=== PATIENT | female | born 1965 | race American Indian/Alaskan Native ===

== ENCOUNTER 2018-09-29 11:01 | Emergency (ER) | payer OTHER ==
[~2018-09-29] VITALS: Ht 170.2 cm; Wt 73.5 kg
--- OUTSIDE RECORDS SUMMARY | ~2018-09-29 | XMS | Clinical Summary ---
Demographics + + + | Address | [address] | | | [place] [address] | + + + | Home Phone | | + + + | Preferred Language | Unknown | + + + | Marital Status | Single | + + + | Mu-Ism Affiliation | Unknown | + + + | Race | Unknown | + + + | Ethnic Group | Unknown | + + + Author + + + | Author | [facility] | + + + | Organization | [facility] | + + + | Address | Unknown | + + + | Phone | Unavailable | + + + Support + + + + + | Name | Relationship | Address | Phone | + + + + + | Janice Griffin | ECON | [id number] | | | | | [place] | | | | | [id number] | | + + + + + Care Team Providers + +------+ + | Care Real Estate Internship Name | Role | Phone | + +------+ + | George Andrews MD | PP | | + +------+ + Allergies Not on File Current Medications Not on file Active Problems Not on file Social History + +-------+ +--------+------+ | Tobacco [...] on file | | + + + Plan of Treatment Not on file Results Not on filefrom Last 3 Months"
--- OUTSIDE RECORDS SUMMARY | ~2018-09-29 | XMS | Clinical Summary ---
Demographics + + + | Address | [id number] | | | [place] [address] | + + + | Home Phone | | + + + | Preferred Language | Unknown | + + + | Marital Status | Unknown | + + + | Pentecostal Affiliation | Unknown | + + + | Race | Unknown | + + + | Ethnic Group | Unknown | + + + Author + + + | Author | [facility] | | | and [facility] | + + + | Organization | [facility] | | | and [place] | + + + | Address | Unknown | + + + | Phone | Unavailable | + + + Care Team Providers + +------+ + | Care Rn Cardiac Rehab Name | Role | Phone | + +------+ + PP | Unavailable | + +------+ + Allergies Not on [...] recent travel history available. | + + Plan of Treatment + + + + [...] Vaccine: Influenza | | | | | (Season Ended) | 9 | | | + + + + + Results Not on filefrom Last 3 Months"
--- OUTSIDE RECORDS SUMMARY | ~2018-09-29 | XMS | Clinical Summary ---
Demographics + + + | Address | [address] | | | [place] [address] | + + + | Home Phone | | + + + | Preferred Language | Unknown | + + + | Marital Status | Single | + + + | Confucianism Affiliation | Unknown | + + + | Race | Unknown | + + + | Ethnic Group | Unknown | + + + Author + + + | Author | [facility] | + + + | Organization | [facility] | + + + | Address | Unknown | + + + | Phone | Unavailable | + + + Support + + + + + | Name | Relationship | Address | Phone | + + + + + | Janice Griffin | ECON | [id number] | | | | | [place] | | | | | [phone] | | + + + + + Care Team Providers + +------+ + | Care Nurse Specialist Name | Role | Phone | + [...]
--- OUTSIDE RECORDS SUMMARY | ~2018-09-29 | XMS | Clinical Summary ---
Demographics + + + | Address | [id number] | | | [place] [address] | + + + | Home Phone | | + + + | Preferred Language | Unknown | + + + | Marital Status | Unknown | + + + | Voodoo Affiliation | Unknown | + + + | Race | Unknown | + + + | Ethnic Group | Unknown | + + + Author + + + | Author | [facility] | | | and [facility] | + + + | Organization | [facility] | | | and [place] | + + + | Address | Unknown | + + + | Phone | Unavailable | + + + Care Team Providers + +------+ + | Care Floor Press Operator Name | Role | Phone [...]
[~2018-09-29 11:01] MED LIST: ABILIFY5 MG PO; ASPIRIN EC81 MG PO; CLOTRIMAZOLE-BE15 GM TOP; DOXYCYCLINE HY100 MG PO; ERYTHROMYCIN3.5 GM OD; FENOFIBRATE160 MG; FENOFIBRATE160 MG PO; GABAPENTIN300 MG PO; GLIPIZIDE XL10 MG PO; GLUCOPHAGE XR500 MG PO; IBUPROFEN600 MG PO; LANTUS100 UNITS/ SUB-Q; LEVAQUIN500 MG PO; MULTI VITAMIN1 EACH PO; MULTIVITAMINS1 EAC7 PO; NORCO 5-325 TA1 EACH PO; PERCOCET 5-3251 EACH PO
[2018-09-29] MEDS ORDERED: PENICILLIN V P500 MG PO (11:09)
== END 2018-09-29 12:31 | disposition home or self-care (01) ==
LOC: ED 11:01
DX: S20.211A Contusion of right front wall of thorax, initial encounter (principal); W06.XXXA Fall from bed, initial encounter; E11.9 Type 2 diabetes mellitus without complications; Z88.5 Allergy status to narcotic agent; Z79.4 Long term (current) use of insulin; Z79.899 Other long term (current) drug therapy
CPT/HCPCS: 71046; 99284-25

== ENCOUNTER 2019-04-26 11:51 | Inpatient (IN) | payer OTHER ==
[~2019-04-26] VITALS: Ht 170.2 cm; Wt 73.5 kg
--- OUTSIDE RECORDS SUMMARY | ~2019-04-26 | XMS | Encounter Summary ---
Demographics + + + | Address | [id number] | | | [place] [address] | + + + | Home Phone | | + + + | Preferred Language | Unknown | + + + | Marital Status | Unknown | + + + | Holiness Affiliation | Unknown | + + + | Race | Unknown | + + + | Ethnic Group | Unknown | + + + Author + + + | Author | [facility] | | | and [place] | + + + | Organization | [facility] | | | and [place] | + + + | Address | Unknown | + + + | Phone | Unavailable | + + + Care Team Providers + +------+ + | Care C D Reactor Operator Name | Role | Phone | + +------+ + PCP | Unavailable | + +------+ + Encounter Details +--------+ + + + + | Date | Type | Department | Care Team | Description | +--------+ + + + + | 02/24/ | Hospital | [facility] | Parker Casillas MD | | | 1994 | Encounter | HOSPITAL EMERGENCY | | | | | | CENTER [address] [place] [address] | | | | | | [place], [place] | | | | | | [address] | | | | | | [phone] | | | +--------+ + + + + Social History + +-------+ +--------+------+ | Tobacco Use | Types | Packs/Day | Years | Date | | | | | Used | | + +-------+ +--------+------+ | Never Assessed | | | | | + +-------+ +--------+------+ + + + | Sex Assigned at | Date Recorded | | | | + + + | Not on file | | + + + + + + + | Job Start Date | Occupation | Industry | + + + + | Not on file | Not on file | Not on file | + + + + + + + + | Travel History | Travel Start | Travel End | + + + + + + | No recent travel history available. | + + documented as of this encounter Plan of Treatment Not on filedocumented as of this encounter Visit Diagnoses Not on filedocumented in this encounter"
--- OUTSIDE RECORDS SUMMARY | ~2019-04-26 | XMS | Encounter Summary ---
Demographics + + + | Address | [id number] | | | [place] [address] | + + + | Home Phone | | + + + | Preferred Language | Unknown | + + + | Marital Status | Unknown | + + + | Orthodox Affiliation | Unknown | + + + | Race | Unknown | + + + | Ethnic Group | Unknown | + + + Author + + + | Author | [facility] | | | and [place] | + + + | Organization | [facility] | | | and [place] | + + + | Address | Unknown | + + + | Phone | Unavailable | + + + Care Team Providers + +------+ + | Care Minister Of Religion Name | Role | Phone | + +------+ + PCP | Unavailable | + +------+ + Encounter Details +--------+ + + + + | Date | Type | Department | Care Team | Description | +--------+ + + + + | 10/10/ | Hospital | [facility] | Wing Ragini Sutton MD | REHABILITATION PROC | | 2005 - | Encounter [facility] | [address] | NEC | | | | INPATIENT | [place], [place] | | | 10/15/ | | REHABILITATION [address] | [address] | | | [address] | | [address] | [phone] | | | | | [place], [place] | | | | | | [address] | | | | | | [phone] | | | +--------+ + + + [...] filedocumented as of this encounter Visit Diagnoses + + | Diagnosis | + + | Other specified rehabilitation procedure(V57.89) Other specified rehabilitation | | procedure | + + documented in this encounter"
--- OUTSIDE RECORDS SUMMARY | ~2019-04-26 | XMS | Clinical Summary ---
Demographics + + + | Address | [id number] | | | [place] [address] | + + + | Home Phone | | + + + | Preferred Language | Unknown | + + + | Marital Status | Unknown | + + + | Hinduism Affiliation | Unknown | + + + | Race | Unknown | + + + | Ethnic Group | Unknown | + + + Author + + + | Author | [facility] | | | and [place] | + + + | Organization | [facility] | | | and [place] | + + + | Address | Unknown | + + + | Phone | Unavailable | + + + Care Team Providers + +------+ + | Care Mill Dresser Name | Role | Phone | + +------+ + | George Andrews MD | PCP | | + +------+ + Allergies Not on File Medications Not on file Active Problems Not [...] recent travel history available. | + + Last Filed Vital Signs Not on file Plan of Treatment + + + + + | Health Maintenance | Due Date | Last Done | Comments | + + + + + | Vaccine: | | | | | Dtap/Tdap/Td (1 - | 2 | | | | Tdap) | | | | + + + + + | Cervical Cancer | | | | | Screening (Pap) | 3 | | | + + + + + | Vaccine: Zoster (1 | | | | | of 2) | 3 | | | + + + + + | Breast Cancer | | | | | Screening | 8 | | | + + + + + | Vaccine: Influenza | | | | | (#1) | 9 | | | + + + + + Results Not on filefrom Last 3 Months"
--- OUTSIDE RECORDS SUMMARY | ~2019-04-26 | XMS | Clinical Summary ---
Demographics + + + | Address | [id number] | | | [place] [address] | + + + | Home Phone | | + + + | Preferred Language | Unknown | + + + | Marital Status | Unknown | + + + | Uatsdin Affiliation | Unknown | + + + | Race | Unknown | + + + | Ethnic Group | Unknown | + + + Author + + + | Author | [facility] | | | and [place] | + + + | Organization | [facility] | | | and [place] | + + + | Address | Unknown | + + + | Phone | Unavailable | + + + Care Team Providers + +------+ + | Care Printing Press Operator Name | Role | Phone | [...]
--- OUTSIDE RECORDS SUMMARY | ~2019-04-26 | XMS | Clinical Summary ---
Demographics + + + | Address | [address] | | | [place] [address] | + + + | Home Phone | | + + + | Preferred Language | Unknown | + + + | Marital Status | Single | + + + | Mormonism Affiliation | Unknown | + + + | Race | Unknown | + + + | Ethnic Group | Unknown | + + + Author + + + | Author | [facility] (Historical as of | | | 01-29-19) | + + + | Organization | [facility] (Historical as of | | | 01-29-19) | + + + | Address | Unknown | + + + | Phone | Unavailable | + + + Support + + + + + | Name | Relationship | Address | Phone | + + + + + | Janice Griffin | ECON | [id number] | | | | | [place] | | | | | [address] | | + + + + + Care Team Providers + +------+ + | Care Cushion Builder Name | Role | Phone | + [...]
--- OUTSIDE RECORDS SUMMARY | ~2019-04-26 | XMS | Encounter Summary ---
Demographics + + + | Address | [id number] | | | [place] [address] | + + + | Home Phone | | + + + | Preferred Language | Unknown | + + + | Marital Status | Unknown | + + + | Zoroastrian Affiliation | Unknown | + + + | Race | Unknown | + + + | Ethnic Group | Unknown | + + + Author + + + | Author | [facility] | | | and [place] | + + + | Organization | [facility] | | | and [place] | + + + | Address | Unknown | + + + | Phone | Unavailable | + + + Care Team Providers + +------+ + | Care Medical Professionals Name | Role | Phone | + +------+ + PCP | Unavailable | + +------+ + Encounter Details +--------+ + + + + | Date | Type | Department | Care Team | Description | +--------+ + + + + | 10/10/ | Hospital | [facility] | Wing Ragini Sutton MD | REHABILITATION PROC | | 2005 - | Encounter [facility] | [address] | NEC | | | | INPATIENT | [place], [place] | | | 10/15/ | | REHABILITATION [address] | [address] | | | 2004 | | [address] | [phone] | | | | | [place], [place] | | | | | | [address] | | | | | | [phone] | | | +--------+ + + + [...]
--- OUTSIDE RECORDS SUMMARY | ~2019-04-26 | XMS | Encounter Summary ---
Demographics + + + | Address | [id number] | | | [place] [address] | + + + | Home Phone | | + + + | Preferred Language | Unknown | + + + | Marital Status | Unknown | + + + | Sikh Affiliation | Unknown | + + + | Race | Unknown | + + + | Ethnic Group | Unknown | + + + Author + + + | Author | [facility] | | | and [place] | + + + | Organization | [facility] | | | and [place] | + + + | Address | Unknown | + + + | Phone | Unavailable | + + + Care Team Providers + +------+ + | Care Semiconductor Engineer Name | Role | Phone | + +------+ + PCP | Unavailable | + +------+ + Encounter Details +--------+ + + + + | Date | Type | Department | Care Team | Description | +--------+ + + + + | 02/24/ | Hospital | [facility] | Parker Casillas MD | | | 1994 | Encounter | HOSPITAL EMERGENCY | | | | | | CENTER [address] [place] [address] | | | | | | [place], [place] | | | | | | [address] | | | | | | [phone] | | | +--------+ + + + [...]
--- OUTSIDE RECORDS SUMMARY | ~2019-04-26 | XMS | Clinical Summary ---
Demographics + + + | Address | [address] | | | [place] [address] | + + + | Home Phone | | + + + | Preferred Language | Unknown | + + + | Marital Status | Unknown | + + + | Congregational Affiliation | Unknown | + + + | Race | Unknown | + + + | Ethnic Group | Unknown | + + + Author + + + | Author | [facility] | | | and [place] | + + + | Organization | [facility] | | | and [place] | + + + | Address | Unknown | + + + | Phone | Unavailable | + + + Care Team Providers + +------+ + | Care Worldwide Chief Creative Officer Name | Role | Phone | + [...]
--- OUTSIDE RECORDS SUMMARY | ~2019-04-26 | XMS | Clinical Summary ---
Demographics + + + | Address | [address] | | | [place] [address] | + + + | Home Phone | | + + + | Preferred Language | Unknown | + + + | Marital Status | Single | + + + | Mu-Ism Affiliation | Unknown | + + + | Race | Unknown | + + + | Ethnic Group | Unknown | + + + Author + + + | Author | [facility] (Historical as of | | | 01-29-19) | + + + | Organization | [facility] (Historical as of | | | 01-29-19) | + + + | Address | Unknown | + + + | Phone | Unavailable | + + + Support + + + + + | Name | Relationship | Address | Phone | + + + + + | Janice Griffin | ECON | [id number] | | | | | [place] | | | | | [address] | | + + + + + Care Team Providers + +------+ + | Care Iv Rn Name | Role | Phone | + [...]
--- OUTSIDE RECORDS SUMMARY | ~2019-04-26 | XMS | Clinical Summary ---
Demographics + + + | Address | [address] | | | [place] [address] | + + + | Home Phone | | + + + | Preferred Language | Unknown | + + + | Marital Status | Single | + + + | Sikhism Affiliation | Unknown | + + + | Race | Unknown | + + + | Ethnic Group | Unknown | + + + Author + + + | Author | [email or web address] (Historical as of | | | 01-29-19) | + + + | Organization | [email or web address] (Historical as of | | | 01-29-19) | + + + | Address | Unknown | + + + | Phone | Unavailable | + + + Support + + + + + | Name | Relationship | Address | Phone | + + + + + | Janice Griffin | ECON | [id number] | | | | | [place] | | | | | [address] | | + + + + + Care Team Providers + +------+ + | Care Chha Name | Role | Phone | + [...]
--- OUTSIDE RECORDS SUMMARY | ~2019-04-26 | XMS | Encounter Summary ---
Demographics + + + | Address | [id number] | | | [place] [address] | + + + | Home Phone | | + + + | Preferred Language | Unknown | + + + | Marital Status | Unknown | + + + | Taoism Affiliation | Unknown | + + + | Race | Unknown | + + + | Ethnic Group | Unknown | + + + Author + + + | Author | [facility] | | | and [place] | + + + | Organization | [facility] | | | and [place] | + + + | Address | Unknown | + + + | Phone | Unavailable | + + + Care Team Providers + +------+ + | Care Fancy Wire Drawer Name | Role | Phone | + +------+ + PCP | Unavailable | + +------+ + Encounter Details +--------+ + + + + | Date | Type | Department | Care Team | Description | +--------+ + + + + | 02/24/ | Hospital | [facility] | Parker Casillas MD | | | 1994 | Encounter | HOSPITAL EMERGENCY | | | | | | CENTER [address] [place] [address] | | | | | | [place], [place] | | | | | | [address] | | | | | | [phone] | | | +--------+ + + + [...]
--- OUTSIDE RECORDS SUMMARY | ~2019-04-26 | XMS | Encounter Summary ---
Demographics + + + | Address | [address] | | | [place] [address] | + + + | Home Phone | | + + + | Preferred Language | Unknown | + + + | Marital Status | Unknown | + + + | Episcopalian Affiliation | Unknown | + + + | Race | Unknown | + + + | Ethnic Group | Unknown | + + + Author + + + | Author | [facility] | | | and [place] | + + + | Organization | [facility] | | | and [place] | + + + | Address | Unknown | + + + | Phone | Unavailable | + + + Care Team Providers + +------+ + | Care Children'S Nursery Assistant Name | Role | Phone | + +------+ + PCP | Unavailable | + +------+ + Encounter Details +--------+ + + + + | Date | Type | Department | Care Team | Description | +--------+ + + + + | 10/10/ | Hospital | [facility] | Wing Ragini Sutton MD | REHABILITATION PROC | | 2005 - | Encounter [facility] | [address] | NEC | | | | INPATIENT | [place], [place] | | | 10/15/ | | REHABILITATION [address] | [address] | | | [address] | | [address] | [phone] | | | | | [place], [place] | | | | | | [address] | | | | | | [phone] | | | +--------+ + + + [...]
[~2019-04-26 11:51] MED LIST changes: +PENICILLIN V P500 MG PO
--- NOTE | 2019-04-26 16:55 | NUR ---
PATIENT ARRIVES FROM ER ON STRETCHER AT 1630. PT CALM, TALKATIVE, AND COOEPRATIVE AT THIS TIME. IVF GOING AT 125 UPON ADMISSION. D/C NOW PER DR. STATON. RECHECKING LABS AT 1800.
--- NOTE | 2019-04-26 19:25 | NUR ---
PATIENT REMAINS SITTING IN CHAIR AND REQUESTING EMESIS BAG FOR FEELING NAUSEOUS AGAIN. CALL LIGHT WITHIN REACH.
--- NOTE | 2019-04-26 19:30 | NUR ---
SHIFT REPORT RECEIVED. PATIENT RESTING IN RECLINER. DENIES ANY NEEDS AT THIS TIME. CALL LIGHT IN REACH.
--- NOTE | 2019-04-26 19:56 | NUR ---
I went to pt room to greet her. She requested i come back @ 1999 so she could get into bed. She stated she was very hungry and is on a clear liquid diet. I double checked with MARGARITA Ríos and broth was approved.
--- NOTE | 2019-04-26 20:21 | EKG ---
[facility] [address] [facility] [place] [address] Signed Normal sinus rhythm Normal ECG No previous ECGs available Confirmed by AIDA STATON MD ([id number]) on 04/26/2019 8:20:55 PM Electronically Signed By: AIDA STATON MD 04/26/192020 PATIENT NAME: CHRISTOPHER PEREIRA Electrocardiogram DATE OF : 61 PHYSICIAN: AIDA STATON MD REPORT #: [id number] REPORT IS CONFIDENTIAL AND NOT TO BE RELEASED WITHOUT AUTHORIZATION
--- NOTE | 2019-04-26 20:36 | NUR ---
pt requested to get into bed from the chair. she did well with the broth and does not feel nauseous at all. I asked if she would like to also try a clear ensure and she stated "I will give it a shot but I'd like to make sure the broth settles well." I agreed with pt. she does not need anything further at this time.
--- NOTE | 2019-04-26 21:30 | NUR ---
PATIENT IN BED. ORIENTED X4. IV FLUIDS STARTED PER ORDERS. PATIENT TOLERATING CLEAR LIQUIDS AND DRANK SOME BROTH AND CLEAR ENSURE. NO NAUSEA. VS STABLE. PATIENT COMPLAINS OF LEFT SIDE PAIN AND DOES NOT USE THIS ARM FOR ANY ACTIVITY. PATIENT ALSO REPORTS "LEG TWITCHING" WHICH SHE TAKE GABAPENTIN FOR AND WAS GIVEN TONIGHT. WARM BLANKET AND EXTRA PILLOW PROVIDED. NO FURTHER NEEDS AT THIS TIME.
--- NOTE | 2019-04-26 21:41 | NUR ---
pt used call light to get back into bed. she resulted in 225ccs of urine. she did not need anything further at this time.
--- NOTE | 2019-04-26 21:54 | NUR ---
PT VANDANA CL LIQ. IS STILL HUNGRY, GIVEN SUGAR FREE PUDDING.
--- NOTE | 2019-04-27 00:05 | NUR ---
PATIENT APPEARED TO BE SLEEPING WHEN RN ENTERED ROOM. NEW IV SITE PLACED IN RIGHT FOREARM, LABS DRAWN. PATIENT TOLERATED WELL. PATIENT REQUEST WATER AND CRACKERS WHICH WERE PROVIDED.
--- NOTE | 2019-04-27 01:00 | NUR ---
REPORTED LAB RESULTS TO . NO NEW ORDERS AT THIS TIME.
--- NOTE | 2019-04-27 01:24 | NUR ---
PATIENT UP TO BATHROOM. WALKS WITH MINIMAL ASSIST, APPEARS STEADY ON HER FEET. REPORTS FEELING SOMEWHAT DIZZY WITH AMBULATION. RETURNED TO BED WITHOUT ISSUES. VS STABLE. NO NAUSEA. PATIENT DENIED ANY NEEDS.
--- NOTE | 2019-04-27 02:55 | NUR ---
PATIENT UP TO THE BATHROOM. STEADY ON HER FEET. DENIES FEELING DIZZY AT THIS TIME. REPORTS RINGING IN HER EARS OFF AND ON. PATIENT BACK TO BED. CALL LIGHT IN REACH.
--- NOTE | 2019-04-27 04:30 | NUR ---
PATIENT UP TO THE BATHROOM. STEADY ON FEET. REQUIRES 1PA TO GET OUT OF BED DUE TO LEFT SIDE PAIN. PATIENT REPORTS SHOOTING PAIN IN HER RIGHT ANKLE THAT HAS INCREASED OVER THE LAST HOUR. PRN TYLENOL PROVIDED WITH WARM BLANKET WRAPPED AROUND THE ANKLE.
--- NOTE | 2019-04-27 05:00 | NUR ---
PATIENT REPORTS PAIN RELIEF AFTER PRN TYLENOL. TOLERATING JUICE AND CRACKERS. INTERESTED IN BREAKFAST THIS MORNING. MENU PROVIDED.
--- NOTE | 2019-04-27 09:33 | NUR ---
SPOKE WITH PATIENT IN ROOM. PATIENT UP IN CHAIR, FEEDING SELF BREAKFAST. HAS SOME RESIDUAL LEFT SIDED WEAKNESS FROM PAST STROKE. 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 SHE STATES HER FAMILY CLEANS, COOK AND SHOPS FOR HER. SHE USES A CANE. DENIES HAVING A WALKER. HAS A RAMP AT THE DOOR. SHE HAS FRIENDS WHO COME AND HELP. SHE STILL DOES THERAPY AT HOME. IS UNSURE WHERE THEY COME FROM. SHE DOESN'T DRIVE, FAMILY TAKES HER TO APPOINTMENTS. HER DAUGHTER HELPS HER WITH SHOWERS. SHE INTENDS TO RETURN HOME AT DISCHARGE. QUESTIONS ANSWERED. DR STATON IN TO SEE PATIENT. WILL CONTINUE TO FOLLOW.
--- NOTE | 2019-04-27 10:09 | NUR ---
PATIENT SITTING IN BED AT THIS TIME. D5 STARTED AT 999 FOR A TOTAL OF 2 L BOLUS DUE TO SODIUM LEVEL RISING TOO FAST. PT STATES HER PAIN AROUND A 4-5 TODAY AND TOLERABLE. PT EATING BREAKFAST NOW AND HER FATHER ARRIVES. ASSESSMENT COMPLETE.
--- NOTE | 2019-04-27 10:20 | NUR ---
SPOKE WITH PATIENT IN ROOM. 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 SHE STATES SHE DRIVES. SHE STATES SHE HAS A WALKER SHE USES AT TIMES DUE TO ARTHRITIS, BUT DOESN'T NEED IT ALL THE TIME. SHE PLANS TO RETURN HOME AT DISCHARGE. SHE IS WORRIED ABOUT HER FATHER. SHE DECLINED OFFER OF MY CALLING NURSES AT [facility] TO CHECK ON HER FATHER, STATES SHE HOPES HER OLDEST BROTHER WENT OVER THIS MORNING. DISCUSSED HER ETOH LEVEL AT ADMIT, OFFERED PEER TO PEER VISIT FROM [facility]. SHE DECLINES, STATING SHE DOES NOT HAVE "A PROBLEM". DISCUSSED SHE WOULD ONLY GET INFORMATION AND IF SHE NEEDED IT LATER SHE WOULD HAVE IT. SHE THANKED ME FOR THE OFFER, BUT STILL DECLINIES. DISCUSSED THAT ALCOHOL CONSUMPTION CAN CAUSE ELECTROLYE IMBALANCES, OF WHICH SHE HAD. QUESTIONS ANSWERED. HER MAIN CONCERN IS WHEN SHE "GETS TO GO". DISCUSSED THAT SHE NEEDS TO TALK WITH DR STATON WHEN HE COMES IN. WILL FOLLOW NEEDED.
--- NOTE | 2019-04-27 12:36 | NUR ---
PT UP TO THE BATHROOM AFTER LITER 2 FINISHED. IV SITE SALINE LOCKED AT THIS TIME. PT VOID QS AND THEN BACK TO THE CHAIR. PT DOES NOT WANT TO EAT AT THIS TIME DUE TO SHE JUST ATE BKF AT 10AM TODAY. THIS WIRTER TOOK OVER CARE FROM MARCIA AVILA.
--- NOTE | 2019-04-27 14:49 | NUR ---
PT REMAINS UP IN THE CHAIR, AND CURRENTLY EATTING LUNCH AT THIS TIME. PT DENIES ANY C/O'S AT THIS TIME.
--- NOTE | 2019-04-27 16:35 | NUR ---
PT DENIES THE NEED TO SHOWER OR HAVE A BED BATH AT THIS TIME. PT STATES " I WILL SHOWER TOMORROW BEFORE I GO HOME."
--- NOTE | 2019-04-27 17:54 | NUR ---
PT C/O'S PAIN AT THIS TIME, BUT WANTS TO WAIT TILL [facility] TO TAKE ANYTHING. PT IS BACK IN BED AT THIS TIME. WAITING FOR HER DINNER TO BE BROUGHT UP THIS EVENING. PT IS STEADY ON HER FEET WHEN AMBULATING. STAFF AT HER SIDE BUT NO ASSISTANCE PROVIDED.
--- NOTE | 2019-04-27 18:17 | NUR ---
LAB HERE TO OBTAIN A SAMPLE AT THIS TIME.
--- NOTE | 2019-04-27 18:19 | NUR ---
PT DINNER IS HERE AT THIS TIME. PT REMAINS IN BED AT THIS TIME.
--- NOTE | 2019-04-27 18:48 | NUR ---
PT ATE DINNER AND VANDANA-WELL. SHE HAS DONE VERY WELL WITH FLUID RESTRICATIONS. SHE IS WELL UNDER THE ALLOWED AMOUNT.
--- NOTE | 2019-04-27 20:00 | NUR ---
PT AAOX4, REPORTS STRESS AND ANXIETY REGARDING HOSPITALIZATION, EASILY REASSURED. SPO2 98% ON ROOM AIR, LUNGS CLEAR THROUGHOUT. SINUS RHYTHM WITH HR IN 90'S. BOWEL TONES ACTIVE. FLUID RESTRICITON IN PLACE. VOIDING QS. REPORTS SHOOTING PAINS INTO FEET AT BASELINE. REPORTS 3/10 LEFT RIB PAIN, DENEIS PRN TYLENOL, REQUESTS TYLENOL AT LATER TIME. IV SITE FLSUHED, PATENT, WNL, SALINE LOCKED. UPDATED PLAN OF CARE. EDUCATION PROVIDED ON PAIN MANAGEMENT. REINFORCED SAFETY AND FALL PRECAUTIONS. DENIES OTHER NEEDS. CALL LIGHT WITHIN REACH.
--- NOTE | 2019-04-27 21:30 | NUR ---
PT REQUESTING TYLENOL ALONG WITH GABAPENTIN, PROVIDED. CBG 222, 4 UNTIS GIVEN. EDUCATION PROVIDED ON POTASSIUM, VERBALIZED UNDERSTANDING AND EXHIBITS KNOWLEDGE. DENIES OTHER NEEDS. CALL LIGHT WITHIN REACH.
--- NOTE | 2019-04-27 22:40 | NUR ---
CALL LIGHT ANSWERED. SBA TO RESTROOM, GAIT STEADY, BACK TO BED. LEGS WRAPPED WITH WARM BLANKET. DENIES OTHER NEEDS. CALL LIGHT WITHIN REACH.
--- NOTE | 2019-04-27 23:33 | NUR ---
PT RESTING IN BED WITH EYES CLOSED. RESPIRATIONS EVEN AND UNLABORED, SPO2 97% ON ROOM AIR. NO ACUTE DISTRESS NOTED.
--- NOTE | 2019-04-28 00:30 | NUR ---
PT REMAINS RESTFUL WITH NO ACUTE DISTRESS NOTED.
--- NOTE | 2019-04-28 01:00 | NUR ---
NO ACUTE CAHNGES TO ASSESSMENT. PT REMAINS RESTFUL. WILL CONTINUE TO MONITOR.
--- NOTE | 2019-04-28 04:00 | NUR ---
PT RESTING, AWAKENS EASILY AND ORIENTED. NO ACUTE CHANGES TO ASSESSMENT. DENIES OTHER NEEDS. CALL LIGHT WITHIN REACH.
--- NOTE | 2019-04-28 06:00 | NUR ---
PT UP WATCHING TV. 200 ML WATER GIVEN, FLUID RESTRICTION RESTARTED. REINFORCED FOLLOW UP CARE. DENIES OTHER NEEDS. CALL LIGHT WITHIN REACH
--- NOTE | 2019-04-28 07:15 | NUR ---
REPORT RECEIVED FROM CCU STAFF. PT RESTING IN BED. INDEPENDANTLY UP TO RESTROOM. PT REPORTS THE "ENSURE WITH THE CREAM MAKES ME SICK." PT STATES SHE HAS SMALL EPISODE OF EMESIS "BUT IT WAS BECAUSE OF THE ENSURE." PT STATES HER ARTHRITIS PAIN "IS GONE." CONTINUES TO REPORT PAIN IN LEFT ABDOMEN "BECAUSE OF THE FALL." PT CONTIUNES TO REPORT FEELING "STRESSED" ABOUT HOME LIFE. PT REQUESTS MORE WATER. FLUID RESTRICITON REVIEWED WITH PT. CRACKERS PROVIDED PER PT REQUEST. NO ADDITIONAL REQUESTS OR COMPLAINTS AT THIS TIME. CALL LIGHT WITHIN REACH.
--- NOTE | 2019-04-28 08:30 | NUR ---
MORNING ASSESSMENT AND MEDICAITONS DUE. PT EATING BREAKFAST. PT REPORTS 4/10 PAIN IN HER LEFT UPPER QUADRANT. PT ENCORUAGED TO GET UP TO CHAIR AND REPOSITION. PT DECLINES A THIS TIME STATING "I WANT TO REST BEFORE MY FATHER GETS HERE." ASSESSMENT DONE. PT DENIES NAUSEA, TOELRATES BREAKFAST WELL. PT REPORTS TINGLING IN FEET. EDUCATION DONE WITH PT REGARDING BLOOD SUGAR CONTROL AND PERIPHERAL NEUROPATHY. PT STATES "OH, I DIDN'T KNOW THAT." PT ABLE TO VERBALIZE UNDERSTANDING OF EDUCATION. WILL CONTINUE TO REINFORCE. ABDOMEN SOFT. PT AT 400ML OF PO INTAKE ALREADY THIS MORNING. EDUCATION DONE WITH PT REGARDING FLUID RESTRICTION. PT VERBALIZES UNDERSTANDING. NO ADDITIONAL REQUESTS OR COMPLAINTS AT THIS TIME. CALL LIGHT WITHIN REACH.
--- NOTE | 2019-04-28 10:00 | NUR ---
PT CALL LIGHT ON. PT REPORTS "FEELING LIKE I NEED TO HAVE A BOWEL MOVEMENT BUT JUST CAN'T." PT ENCOURAGED TO WALK. PT UP TO AMBULATE SOLIZ IN CCU AND 1 LAP IN MED/SURG. PT REPORTS "THAT SEEMED TO HELP. PT UP TO CHAIR. FATHER ARRIVED TO VISIT. PT VISITING WITH FATHER. NO ADDITIONAL REQUESTS OR COMPLAINTS AT THIS TIME.
--- NOTE | 2019-04-28 10:30 | NUR ---
THIS RN TO ROOM FOR ROUNDS WITH MD. PT UP TO CHAIR VISITING WITH FATHER. PT REPORTS FEELING "BETTER" TODAY. PT DENIES NAUSEA. ANTICIPATING TRANSFER TO MED/SURG FLOOR. NO ADDITIONAL REQUESTS OR COMPLAINTS. CALL LIGHT WITHIN REACH.
--- NOTE | 2019-04-28 11:07 | NUR ---
MEDICATION DUE. VITALS TAKEN. PT DENIES PAIN AND NAUSEA STATING "THE PAIN IS ALL GONE." PT REMAINS UP TO CHAIR. TELE DC'D PER MD ORDER. PT REQUESTS TO SHOWER AFTER LUNCH. LUNCH ORDER PLACED. NO ADDITIONAL REQUESTS OR COMPLAINTS AT THIS TIME. CALL LIGHT WITHIN REACH.
[2019-04-28] MEDS ORDERED: ASPIR-LOW81 MG PO (11:22)
[2019-04-28] MEDS ORDERED: DIALYVITE V5000 UNIT PO (11:23)
[2019-04-28] MEDS ORDERED: OCUVITE TABLET1 EAC1 PO (11:23)
[2019-04-28] MEDS ORDERED: COZAAR100 MG PO (11:24)
--- NOTE | 2019-04-28 11:25 | NUR ---
MED REC COMPLETED. PATIENT STATES THAT SHE HAS NOT HAD REFILLS ON FENOFIBRATE OR GLIPIZIDE FOR SEVERAL MONTHS. SHE HAS AN AP[facility].
--- NOTE | 2019-04-28 13:36 | NUR ---
REPORT GIVEN TO MARGARITA CARSON. QUESTIONS ASKED AND ANSWERED. PT UPDATED ON TRANSFER TO MED/SURG.
--- NOTE | 2019-04-28 13:50 | NUR ---
PT TRANSFERED TO MED/SURG ROOM 115. PT DENIES PAIN AND NAUSEA BUT REPORTS SORENESS AT LEFT AC PIV. PIV DC'D PER PROTOCOL. NO ADDTIONAL REQUESTS OR COMPLAINTS. QUESTIONS ANSWERED. ALL BELONGINGS WITH PT.
--- NOTE | 2019-04-28 13:52 | NUR ---
1350: REPORT RECIEVED FROM MINNIE AVILA. PT ARRIVED TO ROOM 115 ON MED-SURG. PT DENIES ANY PAIN, NAUSEA OR PROBLEMS. PT ORIENTED TO HER ROOM AND GIVEN HER CALL GRIER.
--- NOTE | 2019-04-28 15:22 | NUR ---
PT WALKED 2 FULL LAPS AROUND MED S WITH SPECIAL EFFECTS ARTIST. PT WILL TAKE SHOWER BEDORE BED. PT HAS NO NEEDS AT THIS TIME.
--- NOTE | 2019-04-28 15:48 | NUR ---
Pt resting in her chair watching tv. She denies any pain or other problems at this time.
--- NOTE | 2019-04-28 16:25 | NUR ---
Spoke with pt. She is sitting up in a chair. States tired and has been taking care of her elderly father for a few years. Denies use of DME, but occassionally uses a walker if needed.
--- NOTE | 2019-04-28 16:55 | NUR ---
IN TO SEE PATIENT. PT PACING IN ROOM STATES "I'M JUST GETTING SOME EXERCISE IN HERE I HATE TO SIT STILL FOR TOO LONG". PT DENIES NEEDS OR CONCERNS.
--- NOTE | 2019-04-28 18:45 | NUR ---
Ambulated three times around large loop with SBA; steady on feet, denies dizziness, weakness, disruption in balance. Encouraged to continue to ambulate and stated that she has been completing her stretches and excercises independently.
--- NOTE | 2019-04-28 19:05 | NUR ---
SHIFT REPORT RECEIVED FROM DAYSINFT MARGARITA HENDRIX AT BEDSIDE. PT AWAKE AND RSETING IN CHAIR, SALINE LOCKED. NO NEEDS AT THIS TIME, CALL LIGHT IN REACH. WHITE BOARD UPDATED.
--- NOTE | 2019-04-28 21:14 | NUR ---
ASSESSMENT COMPLETE, SCHEDULED MEDS GIVEN (SEE EMAR). VSS, PT ON RA. RATES PAIN 3/10 TO LEFT LATERAL, PRN TYLENOL ALSO GIVEN. PT A/OX4, RECENTLY COMPLETED SHOWER. SALINE LOCKED, IV SITE WNL. PT APPEARS IN GOOD SPIRITS, COMPLIANT WITH CARE. ACCUCHECK RESULT OF 146, INSULIN SS ADMINISTERED PER ORDERS. NO FURTHER NEEDS, CALL LIGHT IN REACH.
--- NOTE | 2019-04-28 23:20 | NUR ---
PT AWAKE AND RESTING IN BED, NO NEEDS AT THIS TIME. PT DENIES NEED TO VOID, ON FLUIDS RESTRICTION. PT STATES, "I WENT TWICE AFTER DINNER". WILL MONITOR. CALL LIGHT IN REACH.
--- NOTE | 2019-04-29 00:32 | NUR ---
PT RESTING IN BED, EYES OPEN AND WATCHING TELEVISION. DENIES NEEDS, CALL LIGHT IN REACH.
--- NOTE | 2019-04-29 02:30 | NUR ---
PT RESTING IN BED, EYES CLOSED. RR WNL. NO DISTRESS NOTED, CALL LIGHT IN REACH.
--- NOTE | 2019-04-29 04:40 | NUR ---
PT AWAKE AND RESTING IN BED, DENIES NEED. APPEARS CONTENT AND IN GOOD SPIRITS. CALL LIGHT IN REACH.
--- NOTE | 2019-04-29 05:38 | NUR ---
PT HAD UNEVETFUL NIGHT, SLEPT ON AND OFF. VSS, PT ON RA. USES CALL LIGHT APPROPERAITELY. PAIN CONTROLLED WITH PRN TYLENOL. ADA DIET, TOLERATING WELL. SALINE LOCKED, IV SITE WNL. PLANNED FOR DIACHARGE TODAY PER .
--- NOTE | 2019-04-29 07:18 | NUR ---
0715: Report recieved from Nicolasa AVILA. Pt lying in her bed with her call sun within reach.
--- NOTE | 2019-04-29 07:56 | NUR ---
PT RESTING IN HER BED AND STATES SHE HAS SOME LEFT ANKLE PAIN BUT DENIES ANY OTHER PROBLEMS AT THIS TIME. PT STATES HER PAIN IS CHRONIC. SEE EMAR.
--- NOTE | 2019-04-29 10:19 | NUR ---
PT RESTING IN HER CHAIR AND SHE STATES HER PAIN IS "OKAY" AT THIS TIME.
--- NOTE | 2019-04-29 10:42 | NUR ---
PT AMBULATING IN THE HALLS AND IS STEADY ON HER FEET.
--- NOTE | 2019-04-29 10:59 | NUR ---
Pt now sitting in her chair following walking 4 laps in the halls. She denies pain and states that she is feeling much better.
[2019-04-29] MEDS ORDERED: LANTUS100 UNITS/ SUB-Q (11:30)
[2019-04-29] MEDS ORDERED: LISINOPRIL10 MG PO (11:30)
[2019-04-29] MEDS ORDERED: GLIPIZIDE XL10 MG PO (11:35)
[2019-04-29] MEDS ORDERED: FENOFIBRATE160 MG PO (11:35)
--- NOTE | 2019-04-29 12:18 | NUR ---
PT GIVEN DC INSTRUCTIONS AND STATES UNDERSTANDING. SHE IS GETTING DRESSED AT THIS TIME.
--- NOTE | 2019-04-29 12:30 | NUR ---
PT AMBULATING IN SOLIZ. SEEMED TO BE PLEASED SHE WAS ABLE TO GET UP. SHE DID MENTIONED THAT SHE WAS WORRIED ABOUT LOSING MUSCLE TONE. PLEASANT VISIT, EXTENDED A BLESSING. WILL FOLLOW NEEDED
--- NOTE | 2019-04-29 12:30 | NUR ---
Pt sitting in chair. States she is painful from arthritis and is following up with pcp. Feels she can safely dc to home. Dad will bring her walker for her to get into her home. States she only uses occassionaly .
== END 2019-04-29 12:30 | disposition home or self-care (01) | DRG 641 ==
LOC: ED 11:51 → CCU 14:58 → MS 04-28 13:50
PROVIDERS: ADMIT Internal Medicine
DX: E87.1 Hypo-osmolality and hyponatremia (principal); F10.129 Alcohol abuse with intoxication, unspecified; E86.1 Hypovolemia; E11.42 Type 2 diabetes mellitus with diabetic polyneuropathy; E87.6 Hypokalemia; R03.0 Elevated blood-pressure reading, without diagnosis of hypertension; E83.42 Hypomagnesemia; K70.10 Alcoholic hepatitis without ascites; Y90.6 Blood alcohol level of 120-199 mg/100 ml; Z88.5 Allergy status to narcotic agent; Z79.899 Other long term (current) drug therapy; Z79.4 Long term (current) use of insulin
CPT/HCPCS: 36415; 70450; 71101; 80048; 80053; 81001; 83036; 83735; 83930; 83935; 84300; 84550; 85025; 85610; 90688; 93005; 93010; 96374; 99291; 99292; C9113; G0008; G0480; J1650; J1815; J2405; J2550; J2597; J3475; J7030; J7070

== ENCOUNTER 2021-01-14 12:25 | Emergency (ER) | payer OTHER ==
[~2021-01-14] VITALS: Ht 170.2 cm; Wt 70.3 kg
[~2021-01-14 12:25] MED LIST changes: +ASPIR-LOW81 MG PO; +COZAAR100 MG PO; +DIALYVITE V5000 UNIT PO; +LISINOPRIL10 MG PO; +OCUVITE TABLET1 EAC1 PO
[2021-01-14] MEDS ORDERED: SODIUM CHLORIDE1 GM PO (16:21)
--- NOTE | 2021-01-15 07:15 | EKG ---
[facility] [address] [place], [place] [address] Signed Normal sinus rhythm Normal ECG When compared with ECG of 26-APR-2019 12:27, No significant change was found Confirmed by SARAHY MERCADO MD ([id number]) on 01/15/2021 7:15:28 AM Electronically Signed By: SARAHY MERCADO MD 01/15/21 0715 PATIENT NAME: CHRISTOPHER PEREIRA Electrocardiogram DATE OF : 61 PHYSICIAN: SARAHY MERCADO MD REPORT #: [id number] REPORT IS CONFIDENTIAL AND NOT TO BE RELEASED WITHOUT AUTHORIZATION
== END 2021-01-14 16:33 | disposition home or self-care (01) ==
LOC: ED 12:25
DX: R07.89 Other chest pain (principal); E87.1 Hypo-osmolality and hyponatremia; E11.9 Type 2 diabetes mellitus without complications; Z88.5 Allergy status to narcotic agent; Z79.899 Other long term (current) drug therapy; Z79.4 Long term (current) use of insulin; Z79.82 Long term (current) use of aspirin
CPT/HCPCS: 71045; 80053; 83735; 84484; 85025; 93005; 93010; 99285-25; U0003

== ENCOUNTER 2021-04-27 11:14 | Emergency (ER) | payer OTHER ==
[~2021-04-27] VITALS: Ht 170.2 cm; Wt 67.6 kg
[~2021-04-27 11:14] MED LIST changes: +SODIUM CHLORIDE1 GM PO
[2021-04-27] MEDS ORDERED: COZAAR25 MG PO (11:43)
[2021-04-27] MEDS ORDERED: AUGMENTIN 875-1 EACH PO (14:10)
== END 2021-04-27 14:48 | disposition home or self-care (01) ==
LOC: ED 11:14
DX: E11.628 Type 2 diabetes mellitus with other skin complications (principal); L03.116 Cellulitis of left lower limb; I10 Essential (primary) hypertension; Z88.5 Allergy status to narcotic agent; Z79.899 Other long term (current) drug therapy; Z79.4 Long term (current) use of insulin; Z79.84 Long term (current) use of oral hypoglycemic drugs; Z79.82 Long term (current) use of aspirin
CPT/HCPCS: 73630; 80053; 85025; 96374; 99283-25; J0295

== ENCOUNTER 2022-10-11 11:45 | Emergency (ER) | payer OTHER ==
[~2022-10-11] VITALS: Ht 170.2 cm; Wt 59.0 kg
[~2022-10-11 11:45] MED LIST changes: +AUGMENTIN 875-1 EACH PO; +COZAAR25 MG PO
[2022-10-11] MEDS ORDERED: LOSARTAN POTASS50 MG PO (15:42)
[2022-10-11 16:07] VITALS: BP 145/85
== END 2022-10-11 16:07 | disposition home or self-care (01) ==
LOC: ED 11:45
DX: E87.1 Hypo-osmolality and hyponatremia (principal); I10 Essential (primary) hypertension; S61.512A Laceration without foreign body of left wrist, initial encounter; S61.511A Laceration without foreign body of right wrist, initial encounter; S51.812A Laceration without foreign body of left forearm, initial encounter; S51.811A Laceration without foreign body of right forearm, initial encounter; E11.9 Type 2 diabetes mellitus without complications; X58.XXXA Exposure to other specified factors, initial encounter; Y04.0XXA Assault by unarmed brawl or fight, initial encounter; Z88.5 Allergy status to narcotic agent; Z79.4 Long term (current) use of insulin; Z79.899 Other long term (current) drug therapy; Z79.82 Long term (current) use of aspirin
CPT/HCPCS: 36415; 70450; 71101; 72125; 72170; 80053; 85025; 86850; 86900; 86901; G0480; J0360; J7030

== ENCOUNTER 2022-11-05 04:37 | Emergency (ER) | payer OTHER ==
[~2022-11-05] VITALS: Ht 170.2 cm; Wt 68.0 kg
[~2022-11-05 04:37] MED LIST changes: +LOSARTAN POTASS50 MG PO
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
[2022-11-05] MEDS ORDERED: CLEOCIN HCL300 MG PO (06:52)
[2022-11-05] MEDS ORDERED: DOXYCYCLINE HY100 MG PO (06:52)
[2022-11-05 08:50] VITALS: BP 181/105
== END 2022-11-05 08:50 | disposition home or self-care (01) ==
LOC: ED 04:37
DX: L03.115 Cellulitis of right lower limb (principal); N39.0 Urinary tract infection, site not specified; E11.22 Type 2 diabetes mellitus with diabetic chronic kidney disease; I12.9 Hypertensive chronic kidney disease with stage 1 through stage 4 chronic kidney disease, or unspecified chronic kidney disease; N18.9 Chronic kidney disease, unspecified; Z88.5 Allergy status to narcotic agent; Z79.899 Other long term (current) drug therapy; Z79.4 Long term (current) use of insulin
CPT/HCPCS: 36415; 71045; 73630; 80053; 81001; 83605; 85025; J0696; J3370; J7030; J7060

== ENCOUNTER 2023-04-08 11:57 | Emergency (ER) | payer OTHER ==
[~2023-04-08] VITALS: Ht 170.2 cm; Wt 66.2 kg
[~2023-04-08 11:57] MED LIST changes: +CLEOCIN HCL300 MG PO; +COZAAR50 MG PO
--- OUTSIDE RECORDS SUMMARY | 2023-04-08 12:00 | XMS ---
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 Care History Medical/Surgical 04/26/2019 [facility] \T\middot;\T\nbsp; PATIENT- [facility] ELIGIBLE \T\middot;\T\nbsp; PLEASE REFER PATIENT TO [facility] FOR NON EMERGENT MEDICAL NEEDS. \T\middot;\ T\nbsp; [facility] CAN SEE PATIENTS SAME DAY FOR APTS IF PATIENT CALLS FIRST THING IN THE MORNING. E.D. VISIT COUNT (12 MO.) [address]Misa Bynum) TOTAL 5 NOTE: Visits indicate total known visits. ED/UCC VISIT TRACKING (12 MO.) 04/08/2023 11:57 [facility] [place] TYPE: Emergency COMPLAINT: - WEAKNESS 03/11/2023 04:23 [facility] [place] TYPE: Emergency COMPLAINT: - POSS AIRWAY RESTRICTION DIAGNOSES: - Allergy status to narcotic agent - Contact with and (suspected) exposure to COVID-19 - Cough, unspecified - Essential (primary) hypertension - terminal operations supervisor (current) use of aspirin - [facility] (current) use of insulin - Non-pressure chronic ulcer of other part of right foot with other specified severity - Other terminal operations supervisor (current) drug therapy - Type 2 diabetes mellitus with foot ulcer [facility] [place] [facility] Emergency DIAGNOSES: - Acute cystitis without hematuria - Cellulitis, unspecified - Osteomyelitis, unspecified - foot inj - Foot Pain 11/05/2022 04:38 [facility] TYPE: Emergency COMPLAINT: - FLU SYMPTOMS DIAGNOSES: - Allergy status to narcotic agent - Cellulitis of right lower limb - Chronic kidney disease, unspecified - Hypertensive chronic kidney disease with stage 1 through stage 4 chronic kidney disease, or unspecified chronic kidney disease - terminal operations supervisor (current) use of insulin - Other terminal operations supervisor (current) drug therapy - Other specified soft tissue disorders - Type 2 diabetes mellitus with diabetic chronic kidney disease - Urinary tract infection, site not specified 10/11/2022 11:45 [facility] [place] TYPE: Emergency [...] body of right wrist, initial encounter - MCFP (current) use of aspirin - terminal operations supervisor (current) use of insulin - Other terminal operations supervisor (current) drug therapy - Type 2 diabetes mellitus without complications INPATIENT VISIT TRACKING (12 MO.) 11/05/2022 11:37 [facility] Misa GONZALES (Misa Bynum) TYPE: Surgical Services DIAGNOSES: - Acute cystitis without hematuria - Acute kidney failure, unspecified - Anemia, unspecified - Bacteremia - Cellulitis of right lower limb - Cellulitis, unspecified - Chronic kidney disease, unspecified - Essential (primary) hypertension - Hypo-osmolality and hyponatremia - terminal operations supervisor (current) use of insulin - Nausea with vomiting, unspecified - Osteomyelitis, unspecified - Proteinuria, unspecified - Sepsis, unspecified organism - Type 2 diabetes mellitus without complications [email or web address]
[2023-04-08 12:45] LABS: BASOPHILS 0.4 % (0-2); EOSINOPHILS 1.7 % (0-6); HEMATOCRIT 35.1 % (35.0-50.0); HEMOGLOBIN 11.6 g/dL (12.0-18.0); LYMPHOCYTES 20.5 % (24-44); MCH 28.5 (27-36); MCV 86.3 fl (81-99); NEUTROPHILS 72.4 % (39-80); PLATELET COUNT 396 K/uL (140-440); RBC 4.07 M/ul (4.3-5.7); RDW 16.6 (10.5-15.0)
[2023-04-08 12:55] LABS: INR 1.08 (0.80-1.30); PROTIME 13.6 Sec (11.2-14.2)
[2023-04-08 13:00] LABS: ALBUMIN 1.9 g/dL (3.4-5.0); ALBUMIN/GLOBULIN RATIO 0.45 (1.1-2.4); ANION GAP 11.6 (7-21); BILIRUBIN, TOTAL 0.4 ng/dL (0.2-1.0); BUN/CREATININE RATIO 9.59 (6.0-28.6); CALCIUM 7.9 mg/dL (8.5-10.1); CREATININE, SERUM 2.71 mg/dL (0.55-1.02); POTASSIUM 3.6 mmol/L (3.5-5.1); PROTEIN, TOTAL 6.1 g/dL (6.4-8.2)
[2023-04-08 15:07] VITALS: BP 195/106
== END 2023-04-08 14:56 | disposition home or self-care (01) ==
LOC: ED 11:57
PROVIDERS: Emergency Medicine
DX: K70.31 Alcoholic cirrhosis of liver with ascites (principal); I10 Essential (primary) hypertension; E11.9 Type 2 diabetes mellitus without complications; Z88.5 Allergy status to narcotic agent; Z79.4 Long term (current) use of insulin; Z79.82 Long term (current) use of aspirin; Z79.899 Other long term (current) drug therapy
CPT/HCPCS: 36415; 49083; 80053; 85025; 85610; 99284-25

== ENCOUNTER 2023-05-01 09:37 | Emergency (ER) | payer OTHER ==
[~2023-05-01] VITALS: Ht 170.2 cm; Wt 69.4 kg
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
[2023-05-01] MEDS ORDERED: NEURONTIN300 MG PO (10:17)
[2023-05-01] MEDS ORDERED: NORVASC10 MG PO (10:18)
[2023-05-01] MEDS ORDERED: COREG12.5 MG PO (10:18)
[2023-05-01 11:03] LABS: HEMOGLOBIN 10.1 g/dL (12.0-18.0); RDW 16.4 (10.5-15.0)
[2023-05-01 11:05] LABS: BASOPHILS 1.6 % (0-2); EOSINOPHILS 2.7 % (0-6); HEMATOCRIT 30.9 % (35.0-50.0); LYMPHOCYTES 15.9 % (24-44); MCH 28.7 (27-36); MCHC 32.8 g/dl (30-36); MCV 87.4 fl (81-99); MONOCYTES 5.6 % (0-12); NEUTROPHILS 74.2 % (39-80); PLATELET COUNT 522 K/uL (140-440); RBC 3.53 M/ul (4.3-5.7)
[2023-05-01 11:16] LABS: ALBUMIN 1.9 g/dL (3.4-5.0); ALBUMIN/GLOBULIN RATIO 0.42 (1.1-2.4); ANION GAP 13.9 (7-21); BILIRUBIN, TOTAL 0.3 ng/dL (0.2-1.0); BUN/CREATININE RATIO 10.49 (6.0-28.6); CREATININE, SERUM 3.05 mg/dL (0.55-1.02); POTASSIUM 3.9 mmol/L (3.5-5.1); PROTEIN, TOTAL 6.4 g/dL (6.4-8.2)
[2023-05-01] MEDS ORDERED: COZAAR50 MG PO (11:54)
[2023-05-01] MEDS ORDERED: LASIX20 MG PO (12:05)
[2023-05-01 12:14] VITALS: BP 218/109
== END 2023-05-01 12:15 | disposition home or self-care (01) ==
LOC: ED 09:37
PROVIDERS: Emergency Medicine
DX: R18.8 Other ascites (principal); I10 Essential (primary) hypertension; E11.9 Type 2 diabetes mellitus without complications; Z88.5 Allergy status to narcotic agent; Z79.899 Other long term (current) drug therapy
CPT/HCPCS: 36415; 71045; 80053; 85025; 99284-25

== ENCOUNTER 2024-02-26 22:53 | Emergency (ER) | payer OTHER ==
[~2024-02-26] VITALS: Ht 170.2 cm; Wt 71.5 kg
[~2024-02-26 22:53] MED LIST changes: +COREG12.5 MG PO; +LASIX20 MG PO; +NEURONTIN300 MG PO; +NORVASC10 MG PO
[2024-02-26 23:23] LABS: BASOPHILS 1.1 % (0-2); EOSINOPHILS 1.2 % (0-6); HEMATOCRIT 28.2 % (35.0-50.0); HEMOGLOBIN 9.2 g/dL (12.0-18.0); LYMPHOCYTES 6.6 % (24-44); MCH 27.8 (27-36); MCHC 32.4 g/dl (30-36); MCV 85.8 fl (81-99); MONOCYTES 4.4 % (0-12); NEUTROPHILS 86.7 % (39-80); PLATELET COUNT 406 K/uL (140-440); RBC 3.29 M/ul (4.3-5.7); RDW 15.4 (10.5-15.0)
[2024-02-26 23:32] LABS: INR 1.09 (0.80-1.30); PROTIME 13.4 Sec (11.2-14.2)
[2024-02-27] MEDS ORDERED: HYDROmorphone HCL 1 MG/ML SYR ONE (00:07)
[2024-02-27] MEDS ORDERED: HYDROmorphone HCL 1 MG/ML SYR IV PRN (00:15)
[2024-02-27] MEDS ORDERED: HYDROCODON-ACE1 EA10 PO (01:53)
[2024-02-27] MEDS ORDERED: HYDROCODONE BIT/ACETAMINOPHEN 5/325 MG 1 TAB HOME.PACK PO ONE (02:00)
[2024-02-27 03:14] VITALS: BP 133/63
== END 2024-02-27 03:16 | disposition home or self-care (01) ==
LOC: ED 22:53
PROVIDERS: Family Medicine
DX: S22.32XA Fracture of one rib, left side, initial encounter for closed fracture (principal); W05.0XXA Fall from non-moving wheelchair, initial encounter; I10 Essential (primary) hypertension; E11.9 Type 2 diabetes mellitus without complications; Z88.5 Allergy status to narcotic agent; Z79.899 Other long term (current) drug therapy
CPT/HCPCS: 36415; 70450; 71101; 72125; 85025; 85610; 96374; 99284-25; A9270; J1170

== ENCOUNTER 2024-05-11 11:42 | Inpatient (IN) | payer OTHER ==
[~2024-05-11] VITALS: Ht 170.2 cm; Wt 71.2 kg
[~2024-05-11 11:42] MED LIST changes: +ALDACTONE25 MG PO; +AMLODIPINE BESY10 MG PO; +HYDROCODON-ACE1 EA10 PO; +IRON236 MG PO
[2024-05-11 12:09] LABS: BASOPHILS 0.7 % (0-2); HEMATOCRIT 28.9 % (35.0-50.0); HEMOGLOBIN 9.6 g/dL (12.0-18.0); LYMPHOCYTES 6.6 % (24-44); MCHC 33.2 g/dl (30-36); MCV 84.3 fl (81-99); MONOCYTES 1.4 % (0-12); NEUTROPHILS 91.3 % (39-80); PLATELET COUNT 365 K/uL (140-440); RBC 3.43 M/ul (4.3-5.7); RDW 15.2 (10.5-15.0)
[2024-05-11] MEDS ORDERED: ondansetron HCL 4 MG/2 ML VIAL IV ONE ×2 (12:15→17:30)
[2024-05-11] MEDS ORDERED: SODIUM CHLORIDE 0.9% 500 ML IV ONE (12:15)
[2024-05-11 12:24] LABS: ALBUMIN 1.6 g/dL (3.4-5.0); ALBUMIN/GLOBULIN RATIO 0.43 (1.1-2.4); ANION GAP 24.5 (7-21); BILIRUBIN, TOTAL 0.2 ng/dL (0.2-1.0); BUN/CREATININE RATIO 10.38 (6.0-28.6); CALCIUM 6.8 mg/dL (8.5-10.1); CREATININE, SERUM 7.22 mg/dL (0.55-1.02); MAGNESIUM 1.9 mg/dL (1.8-2.4); POTASSIUM 3.5 mmol/L (3.5-5.1); PROTEIN, TOTAL 5.3 g/dL (6.4-8.2)
[2024-05-11] MEDS ORDERED: SODIUM CHLORIDE 0.9% 1,000 ML IV ONE (13:30)
[2024-05-11] MEDS ORDERED: LIDOCAINE 2% VISCOUS 6 ML SYR TOP ONE (13:30)
[2024-05-11 13:42] LABS: BILIRUBIN, URINE NEGATIVE (negative); BLOOD/HGB, URINE MODERATE (Negative); KETONE, URINE NEGATIVE (Negative); LEUK ESTERASE, URINE NEGATIVE (negative); NITRITE, URINE NEGATIVE (negative); PH, URINE 5.5 (5-7)
[2024-05-11 13:52] LABS: WHITE BLOOD CELLS, URINE 21-40 /HPF (0-5)
[2024-05-11 13:53] LABS: BACTERIA, URINE 4+ /hpf (negative); CASTS, URINE NONE SEEN \\lpf; COLLECTION TYPE, URINE CLEAN CATCH; CRYSTALS, URINE NONE SEEN (0-1+); EPITHELIAL CELLS, URINE 0 /lpf (0-1+); REFLEX CULTURE, URINE Yes (No)
[2024-05-11] MEDS ORDERED: CEFTRIAXONE/SODIUM CHLORIDE 2 GM/100 ML PIGGYBACK IV ONE (15:00)
[2024-05-11] MEDS ORDERED: SODIUM CHLORIDE 0.9% 1,000 ML IV SCH (15:00)
[2024-05-11] MEDS ORDERED: POTASSIUM CHLORIDE 10 MEQ/100 ML BAG IV SCH (16:45)
[2024-05-11] MEDS ORDERED: DIPHENOXYLATE/ATROPINE 1 EA TAB PO ONE (16:45)
[2024-05-11] MEDS ORDERED: AMLODIPINE BESYLATE 10 MG TAB PO ONE (17:45)
[2024-05-11] MEDS ORDERED: GLUCAGON,HUMAN RECOMBINANT 1 MG/ML VIAL SUB-Q PRN (18:15)
[2024-05-11] MEDS ORDERED: ondansetron HCL 4 MG/2 ML VIAL IV PRN (18:15)
[2024-05-11] MEDS ORDERED: IBLOOD GLUCOSE TEST STRIP 1 EA TEST XX PRN (18:15)
[2024-05-11] MEDS ORDERED: DEXTROSE 50% 50 ML SYR IV PRN ×2 (18:15)
[2024-05-11] MEDS ORDERED: DEXTROSE 5% 1,000 ML IV PRN (18:15)
[2024-05-11 20:50] VITALS: BP 167/59
[2024-05-11 20:50] LABS: ANION GAP 23.6 (7-21); BUN/CREATININE RATIO 11.51 (6.0-28.6); CREATININE, SERUM 6.34 mg/dL (0.55-1.02); POTASSIUM 3.6 mmol/L (3.5-5.1)
[2024-05-11 20:52] LABS: CALCIUM 6.4 mg/dL (8.5-10.1)
[2024-05-11] MEDS ORDERED: IBLOOD GLUCOSE TEST STRIP 1 EA TEST VI SCH (21:00)
[2024-05-11] MEDS ORDERED: INSULIN LISPRO 100 UNIT/ML ML SUB-Q SCH (21:00)
--- NOTE | 2024-05-11 21:19 | NUR ---
PATIENT ARRIVED TO THE FLOOR VIA STRETCHER. PATIENT INCONT OF STOOL. PATIENTS ATTEND CHANGED, WINSOME CARE COMPLETED, GRISSOM CARE COMPLETED. PATIENT TRANSFFERED FROM STRETCHER TO BED BY STAFF. PATIENT PLACED ON MONITOR AND VITALS RECORDED. PATIENTS BS CHECKED AND FOUIND TO BE 45. BS REPEATED AND NOTED TO BE 44. HYPOGLYCEMIA PROTOCOL INITIATED. PATIENT GIVEN D50 PER ORDER. PATIENTS BLOOD SUGAR RECHECKED 15MIN AFTER D50 GIVEN AND NOTED TO BE WNL. MD NOTIFIED NO NEW ORDERS. PATIENTS ADMISSION COMPLETED. ASSESMENT COMPLETED. PATIENT DENIES ANY PAIN. PATIENTS IV FLUIDS INFUSING PER ORDER. PATIENT DENIES ANY NAUSEA. PATIENT GIVEN FRESH ICE WATER, BROTH, AND JELLO. PATIENT DENIES ANY FURTHER NEEDS. PATIENT IS AAOX4. BED ALARM PLACED ON FOR SAFETY.
[2024-05-11] MEDS ORDERED: GABAPENTIN 300 MG CAP PO SCH (21:47)
[2024-05-11 22:00] VITALS: BP 170/75
[2024-05-11] MEDS ORDERED: CALCIUM CARBONATE 500 MG CHEW PO ONE (22:00)
--- NOTE | 2024-05-11 22:21 | NUR ---
PATIENT HAD 500ML OF EMESIS, PRN MEDICATION GIVEN PER ORDER. PATIENT INCONT OF STOOL. PATIENTS BEDDING CHANGED AND BED BATH COMPLETED. PATIENTS ATTEND CHANGED, WINSOME CARE AND GRISSOM CARE COMPLETED. NEW ATTEND IN PLACE. PATIENT REPOSITIONED IN BED. PATIENTS IV INFUSING PER ORDER. PATIENT PROVIDED WARM BLAMKET. PATIENT DENIES ANY FURTHER NEEDS. CALL LIGHT IN REACH. BED ALARM ON FOR SAFETY.
[2024-05-11 23:00] VITALS: BP 170/78
--- NOTE | 2024-05-11 23:04 | NUR ---
PATIENTS SCHEDULED MEDS GIVEN PER ORDER. PATIENT DENIES ANY PAIN OR NAUSEA. PATIENT PROVIDED WARM BLANKET. PATIENT DENIES ANY FURTHER NEEDS. CALL LIGHT IN REACH. BED ALARM ON FOR SAFETY. IV INFUSING PER ORDER.
[2024-05-11] MEDS ORDERED: LACTATED RINGER'S 1,000 ML IV SCH (23:15)
[2024-05-12] VITALS (19 sets, daily range): BP systolic 125–200; BP diastolic 66–99
--- NOTE | 2024-05-12 00:26 | NUR ---
LAB INTO ROOM. PATIENT BS CHECKED AND NOTED TO BE 59. BS RECHECKED AND NOTED TO BE 61. PATIENT IS AAOX4. PATIENT DENIES ANY S/SX OF HYPOGLYCEMIA. PATIENT PROVIDED SNACK, JUICE, AND TEA. PATIENT DENIES ANY PAIN OR NAUSEA. NO FURTHER NEEDS NOTED. CALL LIGHT IN REACH. BED ALARM ON FOR SAFETY. IV INFUSING PER ORDER.
[2024-05-12 00:29] LABS: ANION GAP 24.3 (7-21); BUN/CREATININE RATIO 11.14 (6.0-28.6); CREATININE, SERUM 6.37 mg/dL (0.55-1.02); POTASSIUM 3.3 mmol/L (3.5-5.1)
[2024-05-12 00:30] LABS: CALCIUM 6.3 mg/dL (8.5-10.1)
[2024-05-12] MEDS ORDERED: ACETAMINOPHEN 500 MG TAB PO PRN (01:00)
--- NOTE | 2024-05-12 01:43 | NUR ---
PATIENT IS RESTING IN BED WATCHING TV. LORENA REPORTS 8/10 PAIN ON THE RIGHT SIDE OF HER FACE, PRN MEDICATION GIVEN PER ORDER. PATIENTS BS CHECKED. PATIENT PROVIDED SNACK. PATIENT DENIES ANY NAUSEA. PATIENT DENIES ANY FURTHER NEEDS. CALL LIGHT IN REACH. IV INFUSING PER ORDER. NO FURTHER NEEDS NOTED. CALL LIGHT IN REACH.
--- NOTE | 2024-05-12 01:56 | NUR ---
UPDATED ON PATIENTS LABS. NEW VERBAL ORDER RECEIVED AND VERIFIED USING THE REAPEAT BACK METHOD.
[2024-05-12] MEDS ORDERED: Calcium Gluconate in NS 1,000 MG/50 ML BAG IV ONE ×2 (02:00→09:00)
--- NOTE | 2024-05-12 02:33 | NUR ---
PATIENT IS RESTING IN BED WATCHING TV. PATIENT ABLE TO EAT 100% OF SNACKS. PATIENT DENIES ANY NAUSEA. PATIENT DENIES ANY FURTHER NEEDS. IV INFUSING PER ORDER. CALL LIGHT IN REACH.
--- NOTE | 2024-05-12 04:05 | NUR ---
PATIENT IS RESTING IN BED WATCHING TV. PATIENT DENIES ANY PAIN OR NAUSEA. PATIENTS IV INFUSING PER ORDER. PATIENT DENIES ANY NEEDS. CALL LIGHT IN REACH.
[2024-05-12 05:25] LABS: BASOPHILS 0.8 % (0-2); HEMATOCRIT 24.5 % (35.0-50.0); HEMOGLOBIN 8.2 g/dL (12.0-18.0); LYMPHOCYTES 6.1 % (24-44); MCH 28.2 (27-36); MCHC 33.5 g/dl (30-36); MCV 84.1 fl (81-99); MONOCYTES 4.7 % (0-12); NEUTROPHILS 88.4 % (39-80); PLATELET COUNT 336 K/uL (140-440); RBC 2.91 M/ul (4.3-5.7); RDW 15.4 (10.5-15.0)
--- NOTE | 2024-05-12 05:29 | NUR ---
LAB IN ROOM. PATIENT REPOSITIONED IN BED. PATIENT DENIES ANY PAIN OR NAUSEA. PATIENT DENIES ANY FURTHER NEEDS. CALL LIGHT IN REACH. IV INFUSING PER ORDER. BED ALARM ON FOR SAFETY.
[2024-05-12 05:42] LABS: ALBUMIN 1.2 g/dL (3.4-5.0); ALBUMIN/GLOBULIN RATIO 0.39 (1.1-2.4); ANION GAP 20.1 (7-21); BILIRUBIN, TOTAL 0.2 ng/dL (0.2-1.0); BUN/CREATININE RATIO 10.93 (6.0-28.6); CREATININE, SERUM 6.22 mg/dL (0.55-1.02); MAGNESIUM 1.7 mg/dL (1.8-2.4); POTASSIUM 3.1 mmol/L (3.5-5.1); PROTEIN, TOTAL 4.3 g/dL (6.4-8.2)
[2024-05-12 05:44] LABS: CALCIUM 6.4 mg/dL (8.5-10.1)
--- NOTE | 2024-05-12 06:48 | NUR ---
PATIENT INCONT OF STOOL. PATIENTS ATTEND CHANGED, WINSOME CARE AND GRISSOM CARE COMPLETED. PATIENT DENIES ANY PAIN OR NAUSEA. PATIENT REPOSITTIONED IN BED. PATIENT DENIES ANY FURHTHER NEEDS. CALL LIGHT IN REACH. IV INFUSING PER ORDER.
--- NOTE | 2024-05-12 07:30 | NUR ---
REPORT RECIEVED FROM LABEL STITCHER RN. PATIENT RESTING IN BED AT THIS TIME. CALL LIGHT IN REACH. PATIENT CALLS APPROPRIATELY. PATIENT REQUESTED FRESH TEA. NO OTHER NEEDS AT THIS TIME.
[2024-05-12] MEDS ORDERED: MAGNESIUM CHLORIDE 64 MG TABCR PO ONE (09:00)
[2024-05-12] MEDS ORDERED: POTASSIUM CHLORIDE 40 MEQ,LIDOCAINE HCL 1% 40 MG in DEXTROSE 5% 250 ML IV ONE (09:00)
--- NOTE | 2024-05-12 09:30 | NUR ---
THIS RN AND MD IN TO SEE PATIENT. PLAN OF CARE REVIEWED. MD UPDATED OF PATIENTS BLOOD PRESSURE BEING ELEVATED. PHARMACY WILL BE IN TO DO MED REC AND THEN MD WILL ORDER PATIENTS HOME MEDICATIONS. PATIENT HAS GRISSOM CATHETER PRESENT. PATIENT DENIES ANY NASUEARIGHT NOW. ZOFRAN GIVEN THIS AM WITH BREAKFAST D/T SOME MILD NAUSEA. PATIENT TOELRATED BREAKFAST WEL. PATIENT HAS CALL LIGHT IN REACH. PATIENT HAS HAD A LOT OF PHONE CALLS THIS AM. PATIENT DENIES ANY OTHER NEEDS. CALL LIGHT IN REACH.
[2024-05-12] MEDS ORDERED: CONSTULOSE10 GM/15 M PO (10:32)
--- NOTE | 2024-05-12 10:32 | NUR ---
MED REC COMPLETE
--- NOTE | 2024-05-12 11:05 | NUR ---
ASHVIN RESTING IN THE CHAIR AT THIS TIME. PATIENT WORKED WITH PT THIS AM AND TOELRATED WELL. THEY RECOMMENED AMBULATION TOELRATED. PATIENT VISITING WITH FAMILY ON THE PHONE AT THIS ITME. OFFERED AM CARES AND PATIENT STATED "MAYBE LATER". CALL LIGHT IN REACH.
[2024-05-12] MEDS ORDERED: PHARMACY RENAL DOSE ADJUSTMENT 1 DOSE MISC PO SCH (12:00)
[2024-05-12] MEDS ORDERED: CEFTRIAXONE/SODIUM CHLORIDE 2 GM/100 ML PIGGYBACK IV SCH (12:00)
[2024-05-12] MEDS ORDERED: AMLODIPINE BESYLATE 10 MG TAB PO SCH (12:19)
[2024-05-12] MEDS ORDERED: carvediloL 6.25 MG TAB PO SCH (12:19)
--- NOTE | 2024-05-12 12:20 | NUR ---
PATIENTS BLOOD PRESSURE ELEVATED. MD NOTIFIED. NEW ORDERS PLACED. SEE EMAR.
--- NOTE | 2024-05-12 13:15 | NUR ---
PATIENT SITTING UP IN THE CHAIR AND HELPED UP TO THE CAMMODE. PATIENT HAD AN INCCONT. STOOL. PATIENT CLEANED AND RESTING BACK IN THE CHAIR NOW AT THIS TIME. PATIENTS BLOOD PRESSURE IMPROVED WITH PO MEDICATION.
[2024-05-12 14:22] LABS: ANION GAP 19.7 (7-21); BUN/CREATININE RATIO 10.53 (6.0-28.6); CALCIUM 6.6 mg/dL (8.5-10.1); CREATININE, SERUM 6.36 mg/dL (0.55-1.02); POTASSIUM 3.7 mmol/L (3.5-5.1)
--- NOTE | 2024-05-12 15:09 | NUR ---
Patient up to the cammode and then walked in the hallway with the walker. Patient tolerated well. Patient back to bed now at this time and denies any other needs, patient requests to take a nap at this time.
--- NOTE | 2024-05-12 16:58 | NUR ---
PATIENT HAS FAMILY IN AT THE BEDSIDE AT THIS TIME. NO NEEDS. CALL CHILDREN'S MINNESOTAT IN REACH.
--- NOTE | 2024-05-12 18:34 | NUR ---
PATIENT HAD 300ML EMESIS. PRN ZOFRAN GIVEN. WASH CLOTH PROVIDED FOR PATIENT TO CLEAN UP HER FACE. PATIENT NOW RESTING IN BED. CALL LIGHT IN REACH.
--- NOTE | 2024-05-12 20:19 | NUR ---
PATIENT PROVIDED PRN TYLENOL AND SCHEDULED GABAPENTIN FOR LEG CRAMPS WITH 7/10 PAIN. PATIENT IS AAOX4. MOVING HERSELF IN BED AND STRETCHING OUT HER LEGS. VS STABLE. PATIENT TOLERATING ROOM AIR. DENIED NAUSEA AT THIS TIME. PROVIDED FRESH WATER AND SOME HOT TEA. PATIENT SITTING UP IN BED. CALL LIGHT IN REACH.
--- NOTE | 2024-05-12 22:53 | NUR ---
PATIENT PROVIDED WITH SNACK AND WARM BROTH. PATIENT DENIED ANY FURTHER NEEDS OR CONCERNS. LEG CRAMPS ARE IMPROVED.
[2024-05-13] VITALS (11 sets, daily range): BP systolic 134–196; BP diastolic 72–100
--- NOTE | 2024-05-13 01:11 | NUR ---
PATIENT INCONTINENT OF SMALL AMOUNT OF LIQUID STOOL. PATIENT ASSISTED UP TO BSC AND CLEANED. NEW ATTENDS IN PLACE. PATIENT RETURNED TO BED AND PROVIDED WARM BLANKET. PATIENT TOLERATES ACTIVITY WELL. CALL LIGHT IN REACH.
--- NOTE | 2024-05-13 03:52 | NUR ---
PROVIDED PATIENT WITH PRN TYLENOL FOR PAIN IN HER HANDS. ASSISTED PATIENT TO REPOSITION AND PROVIDED WARM BLANKETS. CALL LIGHT IN REACH.
[2024-05-13 05:35] LABS: BASOPHILS 0.9 % (0-2); EOSINOPHILS 0.9 % (0-6); HEMOGLOBIN 8.1 g/dL (12.0-18.0); LYMPHOCYTES 9.1 % (24-44); MCH 28.4 (27-36); MCHC 33.8 g/dl (30-36); MCV 84.1 fl (81-99); MONOCYTES 5.4 % (0-12); NEUTROPHILS 83.7 % (39-80); PLATELET COUNT 340 K/uL (140-440); RBC 2.86 M/ul (4.3-5.7); RDW 15.7 (10.5-15.0)
[2024-05-13 05:46] LABS: ALBUMIN 1.2 g/dL (3.4-5.0); ALBUMIN/GLOBULIN RATIO 0.39 (1.1-2.4); ANION GAP 16.4 (7-21); BILIRUBIN, TOTAL 0.1 ng/dL (0.2-1.0); BUN/CREATININE RATIO 10.4 (6.0-28.6); CALCIUM 6.5 mg/dL (8.5-10.1); CREATININE, SERUM 5.96 mg/dL (0.55-1.02); POTASSIUM 3.4 mmol/L (3.5-5.1); PROTEIN, TOTAL 4.3 g/dL (6.4-8.2)
--- NOTE | 2024-05-13 06:00 | NUR ---
PATIENT GRISSOM EMPTIED FOR THE SHIFT. PATIENT UP TO BEDSIDE FOR STANDING SCALE WEIGHT. PATIENT TOLERATES WELL. PATIENT REPORTS IMPROVED PAIN IN HANDS AND LEGS AFTER TYLENOL AND WARM BLANEKTS. REPORTS BEING HUNGRY, SNACKS PROVIDED. NO GI UPSET AT THIS TIME. CALL LIGHT IN REACH.
--- NOTE | 2024-05-13 07:30 | NUR ---
Report received from shift mgr. Patient resting in bed with no needs at this time. Stable VSS.
[2024-05-13] MEDS ORDERED: SODIUM CHLORIDE 0.9% 1,000 ML IV SCH (08:15)
[2024-05-13] MEDS ORDERED: POTASSIUM CHLORIDE 10 MEQ TABCR PO ONE (08:15)
--- NOTE | 2024-05-13 08:30 | NUR ---
CBG checked, no insulin required, scheduled medications administered as well as PRN tylenol for arthritis pain per patient request. AM cares complete.
[2024-05-13] MEDS ORDERED: carvediloL 25 MG TAB PO SCH (09:00)
--- NOTE | 2024-05-13 10:00 | NUR ---
Patient had 400ml emesis after breakfast, prn zofran administered, patient states relief found.
--- NOTE | 2024-05-13 10:45 | NUR ---
Patient works with physical therapy.
[2024-05-13] MEDS ORDERED: POTASSIUM CHLORIDE 40 MEQ,LIDOCAINE HCL 1% 40 MG in DEXTROSE 5% 250 ML IV ONE (12:00)
--- NOTE | 2024-05-13 12:40 | NUR ---
IV ABX infusing. CBG checked no SS insulin provided. Patient in stable condition, prepared for paracentesis. development technician in room to confirm fluid collection.
--- NOTE | 2024-05-13 13:30 | NUR ---
Paracentesis performed at bedside with Dr Shaikh. See procedure note. Patient tolerated well with no pain medication required. Pt gave verbal consent witnessed by this RN prior to procedure. VSS. 2400 fluid from ABD. Dressing in place to puncture site. Noted IV to L FA to be inflamed and painful to patient. MARGARITA Villatoro and [place] in room to insert U/S guided IV.
--- NOTE | 2024-05-13 14:55 | NUR ---
Administered PRN tylenol for patient leg cramping, IV ABX and potassium rider infusing WNL. Patient resting in bed after paracentesis, drainage site WNL, scant amount serous drainage noted on bandaid. Junior in place draining clear yellow urine. Patient c/o arthritic pain at baseline, assisted to reposition in bed. No needs at this time. Call light in reach.
--- NOTE | 2024-05-13 15:25 | NUR ---
Call light answered, patient stating 10/10 pain to legs, "muscle cramping", called Dr Shaikh and received a 1 time order for tizanidine, entered.
[2024-05-13] MEDS ORDERED: TIZANIDINE HCL 4 MG TABLET PO ONE (15:30)
--- NOTE | 2024-05-13 15:40 | NUR ---
Administered PRN medication for muscle spasms. Patient repositioned in bed and IV checked, WNL. Patient has family visiting and states no needs at this time.
--- NOTE | 2024-05-13 16:28 | NUR ---
Call light answered, patient requests to use BSC for loose BM, states she will not "make it to the bathroom". Small liquid stool. Linens changed while patient up. Room tidied. Patient states relief found after tizanidine administration. Call light in reach.
[2024-05-13] MEDS ORDERED: ALBUMIN HUMAN 25% 100 ML BTL IV ONE (17:30)
--- NOTE | 2024-05-13 17:33 | NUR ---
Updated Dr Shaikh on patient low urine output. IV Albumin 1 dose ordered. Patient resting in bed with eyes closed, resp even and unlabored. No needs identified at this time
--- NOTE | 2024-05-13 18:20 | NUR ---
CBG checked no SS insulin required. IV dose of albumin infusing. Patient set up with dinner tray. Hot tea provided. No further needs at this time
--- NOTE | 2024-05-13 19:30 | NUR ---
PATIENT SITTING UP IN BED ATTEMPTING TO EAT HER DINNER. PATIENT HAS POOR APPETITE BUT DENIED FEELING NAUSEOUS. CALL LIGHT IN REACH.
--- NOTE | 2024-05-13 21:15 | NUR ---
PATIENT PROVIDED WITH SCHEDULED MEDS AND PRN TYLENOL. PATIENT REPORTS GENERALIZED PAIN IN HER JOINTS AND HAVING LEG CRAMPS. VS STABLE. NO GI UPSET AT THIS TIME; ALTHOUGH POOR INTAKE. IV FLUIDS INFUSING PER ORDER, SITE WNL. GRISSOM CARE DONE, URINE OUTPUT IS LOW. MD AWARE. PATIENT DENIED ANY CONCERNS. FRESH WATER PROVIDED. CALL LIGHT IN REACH.
--- NOTE | 2024-05-13 23:00 | NUR ---
PATIENT PROVIDED A SNACK PER REQUEST. PATIENT HAS BEEN RESTING OFF AND ON; REORIENTED TO THE TIME OF DAY. PATIENT DENIED FURTHER NEEDS. CALL LIGHT IN REACH.
[2024-05-14] VITALS: BP 167/86
--- NOTE | 2024-05-14 00:48 | NUR ---
PATIENT APPEARS TO BE COMFORTABLE IN BED. EYES CLOSED. VS STABLE. CALL LIGHT IN REACH.
--- NOTE | 2024-05-14 01:15 | NUR ---
PATIENT INCONTINENT OF SMALL AMOUNT OF LIQUID STOOL. ASSISTED UP TO THE BSC. PATIENT HAD MORE LIQUID STOOL. ASSISTED PATIENT TO WIPE AND PROVIDED NEW ATTENDS. PATIENT TOLERATED TRANSFER WELL. BACK TO BED. CALL LIGHT IN REACH. WARM BLANKET PROVIDED.
[2024-05-14 02:00] VITALS: BP 157/78
--- NOTE | 2024-05-14 02:45 | NUR ---
PATIENT USED CALL LIGHT REQUESTING A WARM BLANKET. NO FURTHER NEEDS AT THIS TIME. CALL LIGHT WITHIN REACH.
--- NOTE | 2024-05-14 03:37 | NUR ---
patient unable to sleep at this time. snacks and broth provided per request. patient denied other needs. call light in reach.
--- NOTE | 2024-05-14 05:15 | NUR ---
PATIENT INCONTINENT OF SMALL AMOUNT OF STOOL. UP TO BSC WITH FLOAT RN. PATIENT ASSISTED TO CLEAN AND NEW ATTENDS PROVIDED. PATIENT BACK TO BED. CALL LIGHT IN REACH.
[2024-05-14 05:23] LABS: BASOPHILS 1.4 % (0-2); EOSINOPHILS 2.7 % (0-6); HEMATOCRIT 24.4 % (35.0-50.0); HEMOGLOBIN 8.2 g/dL (12.0-18.0); LYMPHOCYTES 7.9 % (24-44); MCH 28.3 (27-36); MCHC 33.4 g/dl (30-36); MCV 84.9 fl (81-99); MONOCYTES 5.8 % (0-12); NEUTROPHILS 82.2 % (39-80); PLATELET COUNT 289 K/uL (140-440); RBC 2.88 M/ul (4.3-5.7); RDW 15.7 (10.5-15.0)
[2024-05-14 05:37] LABS: ANION GAP 19.8 (7-21); BUN/CREATININE RATIO 9.96 (6.0-28.6); CREATININE, SERUM 5.72 mg/dL (0.55-1.02); POTASSIUM 3.8 mmol/L (3.5-5.1)
[2024-05-14 05:41] LABS: CALCIUM 6.3 mg/dL (8.5-10.1)
[2024-05-14 06:00] VITALS: BP 141/73
--- NOTE | 2024-05-14 06:15 | NUR ---
PATIENT RESTING IN BED WITH EYES CLOSED. WAKES EASILY WHEN RN IN ROOM. PATIENT GRISSOM EMPTIED. ROOM CLEANED. PATIENT REPORTS FEELING GOOD TODAY AND IS HOPEFUL TO TAKE A SHOWER. PATIENT DENIED PAIN OR GI UPSET. VS STABLE. IV SITE WNL, IVF PER ORDER. CALL LIGHT IN REACH.
[2024-05-14 07:59] LABS: ALBUMIN 1.3 g/dL (3.4-5.0); ALBUMIN/GLOBULIN RATIO 0.45 (1.1-2.4); ANION GAP 19.9 (7-21); BILIRUBIN, TOTAL 0.1 ng/dL (0.2-1.0); BUN/CREATININE RATIO 9.42 (6.0-28.6); CREATININE, SERUM 5.94 mg/dL (0.55-1.02); POTASSIUM 3.9 mmol/L (3.5-5.1); PROTEIN, TOTAL 4.2 g/dL (6.4-8.2)
[2024-05-14 08:01] LABS: CALCIUM 6.3 mg/dL (8.5-10.1)
--- NOTE | 2024-05-14 09:13 | NUR ---
THIS RN IN ROOM TO ASSESS PATIENT. PATIENT REQUESTS I RETURN IN 5-10 MINUTES SHE MAKES A PHONE CALL.
[2024-05-14] MEDS ORDERED: COREG12.5 MG PO (11:28)
[2024-05-14] MEDS ORDERED: ONDANSETRON ODT8 MG PO (11:30)
[2024-05-14 12:12] VITALS: BP 150/68
--- NOTE | 2024-05-16 09:54 | NUR ---
CLINICALS AND ORDERS FOR HOME HEALTH FAXED TO [facility] AND [facility].
== END 2024-05-14 12:35 | disposition home or self-care (01) | DRG 433 ==
LOC: ED 11:42 → CCU 18:13
PROVIDERS: Emergency Medicine; Student in an Organized Health Care Education/Training Program; ADMIT Family Medicine; ATTEND Family Medicine
PROC: 0W9G3ZX Drainage of Peritoneal Cavity, Percutaneous Approach, Diagnostic (ICD-10-PCS; principal; 2024-05-13)
PROC: 0T9B70Z Drainage of Bladder with Drainage Device, Via Natural or Artificial Opening (ICD-10-PCS; 2024-05-13)
DX: K70.31 Alcoholic cirrhosis of liver with ascites (principal); E87.1 Hypo-osmolality and hyponatremia; S02.40EA Zygomatic fracture, right side, initial encounter for closed fracture; N17.9 Acute kidney failure, unspecified; N39.0 Urinary tract infection, site not specified; M62.82 Rhabdomyolysis; I16.1 Hypertensive emergency; E87.20 Acidosis, unspecified; E86.0 Dehydration; N18.9 Chronic kidney disease, unspecified; I12.9 Hypertensive chronic kidney disease with stage 1 through stage 4 chronic kidney disease, or unspecified chronic kidney disease; E11.649 Type 2 diabetes mellitus with hypoglycemia without coma; E11.22 Type 2 diabetes mellitus with diabetic chronic kidney disease; W18.30XA Fall on same level, unspecified, initial encounter; M19.90 Unspecified osteoarthritis, unspecified site; Z89.429 Acquired absence of other toe(s), unspecified side; Z88.5 Allergy status to narcotic agent; Z79.899 Other long term (current) drug therapy; Z98.890 Other specified postprocedural states; F10.90 Alcohol use, unspecified, uncomplicated; E83.51 Hypocalcemia; E87.6 Hypokalemia; E83.42 Hypomagnesemia; Z71.41 Alcohol abuse counseling and surveillance of alcoholic
CPT/HCPCS: 36415; 70450; 73560; 76705; 80048; 80053; 81001; 82140; 82553; 83605; 83735; 84100; 85025; 87088; 97161; 97165; 97530; 97535; A9270; J0696; J2405; J3480; J3490; J7030; J7040; J7060; J7121; P9047

== ENCOUNTER 2024-05-18 14:04 | Emergency (ER) | payer OTHER ==
[~2024-05-18] VITALS: Ht 170.2 cm; Wt 71.0 kg
[~2024-05-18 14:04] MED LIST changes: +CONSTULOSE10 GM/15 M PO; +ONDANSETRON ODT8 MG PO
[2024-05-18 16:00] VITALS: BP 188/92
== END 2024-05-18 16:00 | disposition home or self-care (01) ==
LOC: ED 14:04
DX: L25.9 Unspecified contact dermatitis, unspecified cause (principal); E11.9 Type 2 diabetes mellitus without complications; I10 Essential (primary) hypertension; Z79.899 Other long term (current) drug therapy; Z88.5 Allergy status to narcotic agent
CPT/HCPCS: 99283

== ENCOUNTER 2024-05-29 20:45 | Inpatient (IN) | payer OTHER ==
[~2024-05-29] VITALS: Ht 170.2 cm; Wt 66.0 kg
[2024-05-29] MEDS ORDERED: KETOROLAC TROMETHAMINE 15 MG/ML VIAL IV ONE (21:15)
[2024-05-29] MEDS ORDERED: SODIUM CHLORIDE 0.9% 500 ML IV PRN (21:15)
[2024-05-29] MEDS ORDERED: MORPHINE SULFATE 4 MG/ML VIAL IV ONE (21:15)
[2024-05-29 21:45] LABS: BASOPHILS 0.6 % (0-2); EOSINOPHILS 0.1 % (0-6); HEMATOCRIT 25.3 % (35.0-50.0); HEMOGLOBIN 8.4 g/dL (12.0-18.0); LYMPHOCYTES 4.9 % (24-44); MCH 28.3 (27-36); MCHC 33.3 g/dl (30-36); MONOCYTES 2.6 % (0-12); NEUTROPHILS 91.8 % (39-80); PLATELET COUNT 359 K/uL (140-440); RBC 2.98 M/ul (4.3-5.7); RDW 16.3 (10.5-15.0)
[2024-05-29 22:02] LABS: ALBUMIN 1.3 g/dL (3.4-5.0); ALBUMIN/GLOBULIN RATIO 0.5 (1.1-2.4); ANION GAP 20.3 (7-21); BILIRUBIN, TOTAL 0.8 ng/dL (0.2-1.0); BUN/CREATININE RATIO 7.56 (6.0-28.6); CALCIUM 6.8 mg/dL (8.5-10.1); CREATININE, SERUM 7.67 mg/dL (0.55-1.02); MAGNESIUM 1.7 mg/dL (1.8-2.4); POTASSIUM 4.3 mmol/L (3.5-5.1); PROTEIN, TOTAL 3.9 g/dL (6.4-8.2)
[2024-05-29] MEDS ORDERED: TRAMADOL HCL50 MG PO (22:38)
[2024-05-29] MEDS ORDERED: TRAMADOL HCL 50 MG HOME.PACK PO ONE (22:45)
[2024-05-29] MEDS ORDERED: MAGNESIUM OXIDE 400 MG TABLET PO ONE (23:45)
[2024-05-29] MEDS ORDERED: SODIUM CHLORIDE 0.9% 1,000 ML IV SCH (23:45)
[2024-05-29] MEDS ORDERED: DEXTROSE 50% 50 ML SYR IV ONE (23:45)
[2024-05-30] VITALS (8 sets, daily range): BP systolic 95–112; BP diastolic 51–71
[2024-05-30] MEDS ORDERED: CYCLOBENZAPRINE HCL 10 MG TAB PO PRN (00:15)
[2024-05-30] MEDS ORDERED: SODIUM CHLORIDE 0.9% 1,000 ML IV SCH (00:15)
[2024-05-30] MEDS ORDERED: ondansetron HCL 4 MG/2 ML VIAL IV PRN ×2 (00:15→09:45)
[2024-05-30] MEDS ORDERED: IBLOOD GLUCOSE TEST STRIP 1 EA TEST XX PRN ×2 (01:00→09:45)
[2024-05-30] MEDS ORDERED: DEXTROSE 50% 50 ML SYR IV PRN ×4 (01:00→09:45)
[2024-05-30] MEDS ORDERED: GLUCAGON,HUMAN RECOMBINANT 1 MG/ML VIAL SUB-Q PRN ×2 (01:00→09:45)
[2024-05-30] MEDS ORDERED: DEXTROSE 5% 1,000 ML IV PRN ×2 (01:00→09:45)
--- NOTE | 2024-05-30 01:17 | NUR ---
pt ARRIVES TO [place] WITH DIGITAL FIELD SERVICE TECHNICIAN VIA STRETCHER. SMALL SCAB NOTED AT COCCYX, PICTURE PLACED IN CHART. REDNESS BLANCHABLE AROUND BUTTOCKS. ASSESSMENT COMPLETE. pt DENIES PAIN. STATES HAS NOT EATEN IN A COUPLE DAYS DUE TO EMOTIONAL STRESSORS. pt STATES WORRIED ABOUT GETTING WOOD AND AFFORDING UTILITIES. CBG 49 AT THIS TIME. GLUCAGON ADMINISTERED PER POLICY AND PO SNACK OF CRACKERS, CHEESE AND JUICE PROVIDED. ORIENATION TO ROOM PROVIDED. CALL LIGHT WITHIN REACH.
--- NOTE | 2024-05-30 01:29 | NUR ---
CBG REASSESSED, 125. MD NOTIFIED. NO NEW ORDERS.
--- NOTE | 2024-05-30 01:55 | NUR ---
PATIENT CALLED STATED IM COLD. 2 WARM BLANKET PROVIDED. DOOR CLOSED.
[2024-05-30] MEDS ORDERED: Insulin Regular, Human 100 UNIT/ML ML SUB-Q SCH ×2 (02:00→08:00)
--- NOTE | 2024-05-30 02:40 | NUR ---
CHECKED ON pt. RESTING IN BED, DROWSY. DENIES NEEDS. CALL LIGHT IN REACH.
--- NOTE | 2024-05-30 05:25 | NUR ---
pt RESTING IN BED. PSYCHOSOCIAL REHABILITATION COUNSELOR IN ROOM. VSS. pt COMPLAINS OF RIGHT KNEE PAIN. ICE PACK PROVIDED. KNEE ELEVATED ON PILLOW. TEA AND SNACKS PROVIDED. CALL LIGHT IN REACH.
[2024-05-30 06:59] LABS: BASOPHILS 0.7 % (0-2); HEMATOCRIT 28.7 % (35.0-50.0); HEMOGLOBIN 8.9 g/dL (12.0-18.0); LYMPHOCYTES 3.8 % (24-44); MCHC 31.1 g/dl (30-36); MCV 86.8 fl (81-99); MONOCYTES 1.6 % (0-12); NEUTROPHILS 93.9 % (39-80); PLATELET COUNT 358 K/uL (140-440); RDW 16.4 (10.5-15.0)
[2024-05-30 07:04] LABS: ALBUMIN 1.2 g/dL (3.4-5.0); ALBUMIN/GLOBULIN RATIO 0.46 (1.1-2.4); ANION GAP 24.3 (7-21); BILIRUBIN, TOTAL 0.5 ng/dL (0.2-1.0); BUN/CREATININE RATIO 7.39 (6.0-28.6); CALCIUM 6.6 mg/dL (8.5-10.1); CREATININE, SERUM 7.71 mg/dL (0.55-1.02); MAGNESIUM 1.7 mg/dL (1.8-2.4); POTASSIUM 4.3 mmol/L (3.5-5.1); PROTEIN, TOTAL 3.8 g/dL (6.4-8.2)
--- NOTE | 2024-05-30 07:09 | NUR ---
Pt report received from MARGARITA Gambino. Pt is resting, sitting up in bed, A&O, television on, denies any needs or pain at this time. Side rails up x4, call light in reach.
[2024-05-30] MEDS ORDERED: IBLOOD GLUCOSE TEST STRIP 1 EA TEST VI SCH ×2 (08:00→12:00)
--- NOTE | 2024-05-30 08:06 | NUR ---
PATIENT SITTING UP IN BED AT THIS TIME. BLOOD SUGAR DONE. BED ALARM ON. CALL LIGHT IN REACH. NO FURTHER NEEDS AT THIS TIME.
[2024-05-30] MEDS ORDERED: LACTULOSE 20 GM/30 ML CUP PO SCH (09:00)
--- NOTE | 2024-05-30 09:15 | NUR ---
In with pt for med administration per emar and mee care as pt had a large liquid/semi-soft dark colored BM. Kiesha Prescott in to assist. Mee care performed, removed allyvn to coccyx, cleansed the area with wipes and noted it was red and blanchable with the area of ulceration intact. Clean/new allyvn applied. Purewick changed after vulva wiped with purewick cleansing wipes, clean brief placed. Pt tolerated activity well. Pt states her right leg is painful and her left arm. Pt did not eat much of her breakfast but is hoping she can eat her lunch. Purewick cannister empty. Side rails up x4, bed to lowest position, call light in reach.
--- NOTE | 2024-05-30 09:37 | NUR ---
IN TO DO VITALS AND I&O'S. PATIENT HAD INCONT. BM. WINSOME CARE, SKIN CARE DONE. NEW ATTENDS IN PLACE. NEW PURWICK IN PLACE. PATIENT REPOSITIONED. RN IN ROOM. CALL LIGHT IN REACH. NO FURTHER NEEDS AT THIS TIME.
[2024-05-30] MEDS ORDERED: bisacodyL 10 MG SUPP PR PRN (09:45)
[2024-05-30] MEDS ORDERED: ACETAMINOPHEN 325 MG TAB PO PRN (09:45)
[2024-05-30] MEDS ORDERED: PROCHLORPERAZINE EDISYLATE 10 MG/2 ML VIAL IV PRN (09:45)
[2024-05-30] MEDS ORDERED: PANTOPRAZOLE SODIUM 40 MG/10 ML VIAL IV SCH (09:48)
[2024-05-30] MEDS ORDERED: HEParin SOD (PORCINE) 5,000 UNIT/ML SDV SUB-Q SCH (09:48)
[2024-05-30] MEDS ORDERED: LIDOCAINE HCL 4% 1 EACH PATCH TD SCH ×2 (10:38→19:30)
[2024-05-30] MEDS ORDERED: GABAPENTIN 300 MG CAP PO SCH (10:38)
[2024-05-30] MEDS ORDERED: FUROSEMIDE 20 MG/2 ML VIAL IV SCH (10:39)
[2024-05-30] MEDS ORDERED: FERROUS SULFATE 325 MG TAB PO SCH (10:40)
[2024-05-30] MEDS ORDERED: ALBUMIN HUMAN 25% 100 ML BTL IV ONE (10:45)
[2024-05-30] MEDS ORDERED: TRAMADOL HCL 50 MG TAB PO PRN ×2 (10:45→20:00)
--- NOTE | 2024-05-30 11:32 | NUR ---
ALBUMIN INFUSION IS HANGING. PO GABAPENTIN AND IRON GIVEN. LIDOCAINE PATCH TO RIGHT OWENS FOR 6/10 PAIN IN THAT AREA. PATIENT INDICATES THAT SHE NEEDS TO FINISH SOME PAPERS WITH HER SON OVER THE HOLIDAYS AND IS CONSIDERING COMFORT CARE FOR HERSELF AFTER THAT.
--- NOTE | 2024-05-30 11:50 | NUR ---
Spoke with Silvia. She states she lives on [address] and her nephew Boots helps her. She states she is giving him a week off since its the holidays. Pts cognition is off and I attempted to discuss how she functions; grocery shopping, cooking, cleaning, driving. Pt states she drives to [employer] and uses a cart to shop. We discussed she had an appt at her home with [facility]. She declined their services. Pt states she does not want OP PT at the [facility] as she does not trust them, she does not want [facility] medicaid or cg in the home as she does not trust them. Pt declines most everything I offer and states she has a nurse and a CHR from the [facility] who see her. She states she also has friends and family who care for her. She is unsure if she would ever accept assistance from [facility], Aging and Disability as she feels they are untrustworthy. Pt plans on dc to home. I am unsure how this can happen, but pt states she uses a wc at home and has a ramp. Called and left a message for Temitope De Paz RN at [facility] and Beba Callejas from [facility].
[2024-05-30] MEDS ORDERED: PHARMACY RENAL DOSE ADJUSTMENT 1 DOSE MISC PO SCH (12:00)
[2024-05-30] MEDS ORDERED: INSULIN LISPRO 100 UNIT/ML ML SUB-Q SCH (12:00)
--- NOTE | 2024-05-30 12:17 | NUR ---
VISITED DURING SPIRITUAL CARE ROUNDS. PT TALKED OF BIG DECISION TO MAKE, INVITED PRAYER. SPIRITUAL PAIN EVIDENT IN SLOWNESS OF SPEECH, UNCERTAINTY, DESIRE TO TALK WITH SON. BENEFITS OFFICER PROVIDED SUPPORTIVE PRESENCE, LISTENED EMPATHETICALLY, PROVIDED PRAYER. PT EXPRESSED GRATITUDE, DESIRE FOR SUBSEQUENT VISITS. WILL CONTINUE TO VISIT CIRCUMSTANCES ALLOW.
--- NOTE | 2024-05-30 13:53 | NUR ---
PATIENT UP TO BSC AND BACK TO BED, 2PA PIVOT. VITALS AND I&O'S DONE AND CHARTED. CALL LIGHT IN REACH, NO FURTHER NEEDS AT THIS TIME.
--- NOTE | 2024-05-30 16:24 | NUR ---
Received a call from Naz Callejas at [facility]. She states she and Poncho from [facility] visited Silvia at her home. Pt refused all services and her neighbor agreed she was doing much better.
--- NOTE | 2024-05-30 18:09 | NUR ---
medications reconciled with patient
--- NOTE | 2024-05-30 18:30 | NUR ---
production quality analyst Elaine bladder scanned this pt and was unsure if part of the amount was the pt's ascites or not, but the bladder scan showed greater than 900ml. The pt has had about 100ml u/o this shift, Dr. Shaikh is aware, and ordered an indwelling licona catheter. This RN inserted the licona catheter using sterile technique and a 14fr catheter with the assistance of Elaine Acevedo RN. Bladder emptied of about 150ml clear yellow urine, 50ml of it sent to lab for urine specimen. Pt reports her right leg is hurting and is cold. Pedal pulses faint but palpable. Noted 1+ edema in R ankle and calf. 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 ulcerations noted to the tops of 2 toes of both feet. Warm blankets provided to pt. Hot tea also provided. Bed to lowest position, side rails up x4, call light in reach. IV S/L
[2024-05-30 19:06] LABS: BILIRUBIN, URINE NEGATIVE (negative); BLOOD/HGB, URINE SMALL (Negative); KETONE, URINE NEGATIVE (Negative); LEUK ESTERASE, URINE NEGATIVE (negative); NITRITE, URINE NEGATIVE (negative); PH, URINE 5.5 (5-7)
--- NOTE | 2024-05-30 19:08 | NUR ---
THIS INTERNAL MEDICINE DOCTOR IN TO DO VITALS AND I&O'S. MONITOR IN ROOM WOULD NOT READ O2 STAT OR PULSE AND PATIENT COMPLAINING OF BEING SHORT OF BREATH. NOTIFIED RN IMMEDIATLEY. RN INTO ROOM WITH CHARGE NURSE. FOREHEAD O2 PROB BROUGHT INTO ROOM UPON RN REQUEST AND HOOKED UP. O2 STAT READING 98-100% ON ROOM AIR WITH HEAD PROB AND BEDSIDE MONITOR. RN TAKING BLOOD PRESSURES AND GOT VERY SOFT BPS ON RIGHT SIDE AND NORMAL ON LEFT SIDE. RN NOTIFIED DR. ALVARADO.
[2024-05-30 19:24] LABS: BACTERIA, URINE RARE /hpf (negative); CASTS, URINE GRANULAR 1+ \\lpf; CRYSTALS, URINE NONE SEEN (0-1+); EPITHELIAL CELLS, URINE NONE SEEN /lpf (0-1+); RED BLOOD CELLS, URINE 0-1 /hpf (0-5); WHITE BLOOD CELLS, URINE 0-1 /HPF (0-5)
[2024-05-30 19:26] LABS: COLLECTION TYPE, URINE CLEAN CATCH; REFLEX CULTURE, URINE No (No)
[2024-05-30] MEDS ORDERED: HYDROmorphone HCL 1 MG/ML SYR IV PRN (19:30)
--- NOTE | 2024-05-30 19:40 | NUR ---
REPORT RECEIVED FROM FAN AVILA. HOSPITALIST IN DUE pt HAVING LOW BP ON HER RIGHT ARM AND A NORMAL BP ON THE LEFT ARM. pt ALSO COMPALINING OF 10/10 PAIN IN HER LEGS THE PAIN IS CRAMPING PAIN. THE DOCTOR ORDERED PRN PAIN MEDICATION. PAIN MEDS ADMINISTERED. pt DID NOT TOLERATE IT WELL AND STATED SHE WAS SEEING THINGS AND THAT HER VISION WAS GETTING BLURRED. NEW ORDERS PLACED BY MD AND VERFIED WITH REPEAT BACK METHOD.
--- NOTE | 2024-05-30 20:27 | NUR ---
CALLED IN BY MARGARITA SUH. PT HAD REQUESTED LAST RITES BUT HAD SPECIFIED "NO JAINISM, I WANT PRESBUTERIAN." BY THE TIME I ARRIVED, DR. ALVARADO HAD TALKED WITH PT AND PAIN RELIEF HAD BEEN PROVIDED. PT NOW REQUESTED PRAYERS AND READING OF SACRED TEXT WHICH I PROVIDED. PT ALSO ASKED THAT CEMENT CRUSHER OPERATOR HARRIETT HAIRSTON OF [facility] BE NOTIFIED OF HER CONDITION AND PRESENCE AT HOSPITAL. CARE TRAINER PROVIDED SUPPORTIVE PRESENCE, PRAYER, READ SACRED TEXT, ADVOCATED FOR PT, FACILITATED CONTACT WITH LEORA LEADER. PT EXPRESSED GRATITUDE, PEACE.
[2024-05-30] MEDS ORDERED: LIDOCAINE PATCH REMOVAL 1 EA TD SCH ×2 (21:00)
[2024-05-30] MEDS ORDERED: MELATONIN 3 MG TAB PO PRN (21:00)
[2024-05-30] MEDS ORDERED: CALCIUM CARBONATE 500 MG CHEW PO SCH (21:00)
[2024-05-30] MEDS ORDERED: TRAMADOL HCL 50 MG TAB PO SCH (21:00)
--- NOTE | 2024-05-30 21:29 | NUR ---
PATIENT REPORTS 10/ BILAT LEGS. ADMIN ULTRAM 100MG PO AT THIS TIME FOR PAIN. BLOOD SUGAR IS 62. 8OZ OF ORANGE JUICE AND A SNACK PROVIDED TO PATIENT AT THIS TIME. PATIENT AWAKE, ALERT AND ORIENTED X3.
--- NOTE | 2024-05-30 21:35 | NUR ---
BG CHECKED WITH A RESULTS OF 62. NO SS INSULIN NEEDED. SCHEDULED MEDS ADMINISTERED. SNACK PROVIDED TO HELP RAISE pt BG. PRN PAIN MEDICATION AND PRN MEDCATION ADMINISTERED. ASSESSMENT AND VITAL SIGNS DONE. pt DENIES AND OTHER NEEDS AT THIS TIME. CALL LIGHT WITHIN REACH.
--- NOTE | 2024-05-30 22:31 | NUR ---
BG CHEKED AT 2153 WITH A RESULTS OF 48 AND RECHECKED ON A DIFFERENT FINGURE WITH A RESULTS OF 63. AT 2227 BG CHECKED WITH A RESULTS OF 50 AND RECHECKED ON A DIFFERENT FINGURE WITH A RESULTS OF 59. HOSPITALISTS IN THE WITH THIS RN TO MEASURE pt CALFS NO GROWTH AT THIS TIME. PUT IN MEW ORDERS FOR D5W TO HELP RAISE pt BLOOD SUGAR. NO OTHER NEEDS AT THIS TIME.
[2024-05-30] MEDS ORDERED: DEXTROSE 5% 1,000 ML IV SCH (22:45)
--- NOTE | 2024-05-31 00:33 | NUR ---
BG CHECKED WITH A RESULTS OF 78. NO NEW INTERVENTIONS AT THIS TIME. D5W STILL RUNNING AT THIS TIME. pt RESTING IN THE BED WITH EYES CLOSED. RR EVEN AND UNLABORED. CALL LIGHT WITHIN REACH.
--- NOTE | 2024-05-31 02:19 | NUR ---
BG CHECKED WITH A RESULTS 129. NO SS INSULIN NEEDED. pt RESTING ON HER LEFT SIDE. pt DENIES ANY NEEDS AT THIS TIME. CALL LIGHT WITHIN REACH.
[2024-05-31 04:15] VITALS: BP 119/59
[2024-05-31 04:20] VITALS: BP 119/59
--- NOTE | 2024-05-31 05:27 | NUR ---
ASSESSMENT AND VS DONE. BG CHECKED WITH A RESULTS OF 134. pt RESTING IN THE BED. REQUESTING HOT TEA AND WARM BLANKETS. pt DENIES ANY OTHER NEEDS AT THIS TIME. CALL LIGHT WITHIN REACH. D5W STILL RUNNING AT THIS TIME.
[2024-05-31 05:42] LABS: BASOPHILS 0.5 % (0-2); EOSINOPHILS 0.9 % (0-6); HEMATOCRIT 25.2 % (35.0-50.0); LYMPHOCYTES 5.7 % (24-44); MCH 28.2 (27-36); MCHC 31.6 g/dl (30-36); MCV 89.1 fl (81-99); MONOCYTES 4.1 % (0-12); NEUTROPHILS 88.8 % (39-80); PLATELET COUNT 329 K/uL (140-440); RBC 2.83 M/ul (4.3-5.7); RDW 17.3 (10.5-15.0)
[2024-05-31 06:03] LABS: ALBUMIN 1.5 g/dL (3.4-5.0); ALBUMIN/GLOBULIN RATIO 0.65 (1.1-2.4); ANION GAP 21.7 (7-21); BILIRUBIN, TOTAL 0.4 ng/dL (0.2-1.0); BUN/CREATININE RATIO 6.64 (6.0-28.6); CREATININE, SERUM 7.67 mg/dL (0.55-1.02); MAGNESIUM 1.8 mg/dL (1.8-2.4); POTASSIUM 4.7 mmol/L (3.5-5.1); PROTEIN, TOTAL 3.8 g/dL (6.4-8.2)
[2024-05-31 06:05] LABS: CALCIUM 6.1 mg/dL (8.5-10.1)
--- NOTE | 2024-05-31 06:05 | NUR ---
LAB CALLED FOR CRITICAL LAB VALUE. CALLED. ORDER FOR TUMS TO BE GIVEN EARLY. NO OTHER ORDERS AT THIS TIME.
--- NOTE | 2024-05-31 07:44 | NUR ---
VERBAL REPORT RECEIVED FROM MARGARITA COOLEY . PT ALERT AND AWAKE IN BED, WATCHES TV. NO REQUESTS AT THIS TIME.
[2024-05-31 08:00] VITALS: BP 111/58
[2024-05-31 08:05] VITALS: BP 111/58
--- NOTE | 2024-05-31 08:36 | NUR ---
DR. ALVARADO, IN PT ROOM. DR. ALVARADO NOTIFIED OF PT POOR URINE OUTPUT ON PM SHIFT. VERBAL ORDER RECEIVED OKAY TO D/C CPOX. D5W INFUSING IN RFA IV, SITE C/D/I, NO LEAKING OR SWELLING NOTED. OLD LIDOCAINE PATCHES REMOVED FROM BLE. NEW PATCHES APPLIED, SEE EMAR. PT ASSISTED TO RECLINER, CHAIR ALARM IN PLACE, CALL LIGHT IN REACH. PT EATS BREAKFAST, NO FURTHER REQUESTS AT THIS TIME.
[2024-05-31] MEDS ORDERED: AMLODIPINE BESYLATE 10 MG TAB PO SCH (09:00)
--- NOTE | 2024-05-31 09:14 | NUR ---
NEW BAG OF IVF INFUSING. BAR USEFUL OR BUSSER IN TO DISCUSS PLANS WITH PATIENT.
--- NOTE | 2024-05-31 09:30 | NUR ---
Received a call from Karson at the [facility]. They reviewed pts needs, but made it clear they cannot provide caregiving and pt does not have family who are interested in caregiving for this pt. They also state they spoke with pt and she would like hospice. I updated, this pt will be required by hospice to have a 24 hr cg. They will speak with the [place] to see if there are any funds for cg and also check if pt were to go to a SNF if they would pay for additional days once her medicaid days are exhausted.
--- NOTE | 2024-05-31 09:50 | NUR ---
Spoke with Silvia. She has changed her mind today and only wants hospice. We discussed she would have to have a cg 24 hrs per day for Hospice to admit her. She states she has family members who will assist her. She gave me Boot's name. I attempted to call him and he did not answer. Pt also mentioned a Carleen and Ly, She does not have their phone numbers.
--- NOTE | 2024-05-31 10:58 | NUR ---
PHYSICAL THERAPY IN WITH PT. PT REQUEST BSC FOR BM. PT TO BSC WITH 2PA STAND AND PIVOT, MAX ASSIST. PT PASSES SMALL BM, WINSOME CARE PROVIDED. PT TO BED FOR PARACENTESIS. IMAGING AND DR. ALVARADO IN ROOM WITH PT.
--- NOTE | 2024-05-31 11:02 | NUR ---
UR CLINICAL REVIEW: [facility] INPT FOR LIVER DISEASE ISC BASIC DMAP INPT 05/30/24 @ 0949 ORDER MATCHES REG NO AUTH REQUIRED PER MEDICAID GUIDELINES DISCHARGE DISPOSITION PENDING FURTHER EVAL. 06/02/24
--- NOTE | 2024-05-31 12:43 | NUR ---
THIS RN ASSISTS DR. ALVARADO IN PARACENTESIS. 7050 MLS OF FLUID REMOVED FROM ABDOMEN. SITE IN LLQ DRESSED WTIH MASTISOL AND TRANSPARENT DRESSING. PT TOLERATED PROCEDURE WELL. ABDOMEN NOW SOFT AND FLAT WITH EXCEPTION OF LARGE HERNIA.
[2024-05-31] MEDS ORDERED: ALBUMIN HUMAN 25% 100 ML BTL IV ONE (12:45)
--- NOTE | 2024-05-31 13:05 | NUR ---
PT REST IN BED, ALBUMIN INFSUING. ABDOMEN IS NOW SOFT AND FLAT.
--- NOTE | 2024-05-31 13:28 | NUR ---
Called and spoke with Temitope at the [facility]. Asked if they could pay for a cg as pt wants to go home with hospice. They will require pt to have a cg. Pt states she can have family members help, but per our call this am, Temitope does not feel this pt has help.
--- NOTE | 2024-05-31 13:53 | NUR ---
VISITED DURING SPIRITUAL CARE ROUNDS. PT APPEARED TO BE SLEEPING. DID NOT DISTURB. PROVIDED PRAYER.
[2024-05-31 14:20] VITALS: BP 115/54
--- NOTE | 2024-05-31 14:23 | NUR ---
PT MISSED LUNCH DUE TO PROCEDURE AND SLEEPINESS. PT REQUESTS SOUP AND SALAD, RECEIVED. PT SITS UP AND EATS.
--- NOTE | 2024-05-31 15:00 | NUR ---
Spoke with Temitope from the [facility]. She states they have checked and cannot find any family who are willing to stay or help pt. She also states [facility] will not copay any SNF time past what medicaid covers.
--- NOTE | 2024-05-31 17:50 | NUR ---
PT SITS UP IN BED, EATS DINNER. TOLERATED A LATE LUNCH WELL. REPORTS, "I FEEL MUCH BETTER." "MY STOMACH DOESN'T HURT." ABDOMEN REMAINS SOFT AND FLAT. PARACENTESIS SITE IS C/D/I.
--- NOTE | 2024-05-31 18:33 | NUR ---
URINE OUTPUT VIA GRISSOM CATHETER IS [address] ALVARADO NOTIFIED.
[2024-05-31 18:40] VITALS: BP 140/58
[2024-05-31] MEDS ORDERED: LACTATED RINGER'S 1,000 ML IV SCH (19:00)
[2024-05-31] MEDS ORDERED: ARTIFICIAL TEARS 15 ML BTL OU PRN (19:15)
[2024-05-31] MEDS ORDERED: LORazepam 2 MG/ML VIAL IV PRN (19:15)
[2024-05-31] MEDS ORDERED: ATROPINE SULFATE 1% OPTH DROPS SL PRN (19:15)
[2024-05-31] MEDS ORDERED: ACETAMINOPHEN 650 MG SUPP PR PRN (19:15)
--- NOTE | 2024-05-31 19:37 | NUR ---
REPORT RECEIVED FROM ZOHRA AVILA. pt RESTING IN THE BED. FAMILY IN THE RM. BOARD UPDATE. pt DENIES ANY NEEDS AT THIS TIME. CALL LIGHT WITHIN REACH.
--- NOTE | 2024-05-31 22:15 | NUR ---
ASSESSMENT DONE. pt RESTING IN THE BED. RM CLEANED. pt REPOSITIONED. GRISSOM CARE DONE. pt DENIES ANY NEEDS AT THIS TIME. CALL LIGHT WITHIN REACH.
--- NOTE | 2024-05-31 22:50 | NUR ---
pt GETTING AGGITATED AT THIS TIME AND TURNING HER SELF IN THE BED. PRN ATIVAN ADMINISTERED. pt DENIES ANY NEEDS AT THIS TIME. IV ASSESSED, WNL. CALL LIGHT WITHIN REACH.
--- NOTE | 2024-06-01 00:42 | NUR ---
pt RESTING IN THE BED WITH EYES CLOSED. RR EVEN AND UNLABORED. CALL LIGHT WITHIN REACH.
--- NOTE | 2024-06-01 02:12 | NUR ---
pt RESTING IN THE BED WITH EYES CLOSED. RR EVEN AND UNLABORED. CALL LIGHT WITHIN WITHIN REACH.
--- NOTE | 2024-06-01 03:22 | NUR ---
pt RESTING IN THE BED WITH EYES CLOSED. RR EVEN AND UNLABORED. CALL LIGHT WITHIN REACH.
--- NOTE | 2024-06-01 05:45 | NUR ---
pt GETTING RESTLESS. PRN ATIVAN AND PAIN MEDS ADMINISTERED. pt DENIES ANY NEEDS AT THIS TIME. CALL LIGHT WITHIN REACH. GOWN PLACED ON pt.
--- NOTE | 2024-06-01 07:33 | NUR ---
VERBAL REPORT RECEIVED FROM MARGARITA COOLEY. PT RESTS IN BED WITH EYES CLOSED, RESP EVEN AND UNLABORED.
--- NOTE | 2024-06-01 08:26 | NUR ---
PATIENT IN BED AT THIS TIME. MILK CONDENSER WENT INTO PATIENTS ROOM FOR HOURLY ROUNDS. CALL LIGHT WITHIN REACH, NO FURTHER NEEDS AT THIS TIME.
[2024-06-01] MEDS ORDERED: PANTOPRAZOLE SODIUM 40 MG TABEC PO SCH (09:00)
--- NOTE | 2024-06-01 11:01 | NUR ---
VISITED DURING SPIRITUAL CARE ROUNDS. PT APPEARED TO BE SLEEPING. DID NOT DISTURB. PROVIDED PRAYER.
[2024-06-01] MEDS ORDERED: MORPHINE SULFATE 20 MG/ML SYR SL PRN (12:00)
--- NOTE | 2024-06-01 13:11 | NUR ---
PT RESTS IN BED WITH EYES CLOSED, RESP EVEN AND UNLABORED. PT ROUSES TO VOICE, NOW ANSWERS WITH ONE [employer] RESPONSES. UNABLE TO HOLD A CONVERSATION AT THIS TIME. PT IS CALM.
--- NOTE | 2024-06-01 14:29 | NUR ---
PATIENT IN BED AT THIS TIME. CALL LIGHT WITHIN REACH, NO FURTHER NEEDS AT THIS TIME.
--- NOTE | 2024-06-01 16:12 | NUR ---
PT NOW AWAKE AND ALERT. ORIENTED TO PLACE AND SELF ONLY. RE-ORIENTED EASILY. WARM BLANKET PROVIDED. TEA PROVIDED PER PT REQUEST. PT ABLE CONVERSATE ALTHOUGH SHE STILL DROWSY.
[2024-06-01] MEDS ORDERED: CYCLOBENZAPRINE HCL 10 MG TAB PO PRN (17:30)
--- NOTE | 2024-06-01 17:30 | NUR ---
PT'S NEPHEW, CELIA PEREIRA, INTO VISIT PT.
--- NOTE | 2024-06-01 18:03 | NUR ---
FLEXERIL RECEIVED FOR CRAMPING PAIN IN BLE. PT SITS UP ON BED, AWAKE AND ALERT, EATS DINNER.
--- NOTE | 2024-06-01 19:15 | NUR ---
REPORT RECIVED FROM HENNY AVILA. pt RESTING IN THE BED. BOARD UPDATED. NO OTHER NEEDS AT THIS TIME. CALL LIGHT WITHIN REACH.
--- NOTE | 2024-06-01 22:10 | NUR ---
ASSESSMENT DONE. pt C/O 01/22 PAIN. PRN PAIN MEDS ADMINISTERED. pt DENIES ANY OTHER NEEDS AT THIS TIME.
--- NOTE | 2024-06-02 00:30 | NUR ---
pt RESTING WITH EYES CLOSED. RR EVEN AND UNLABORED. CALL LIGHT WITHIN REACH.
--- NOTE | 2024-06-02 02:30 | NUR ---
pt GETTING RESTLESS. STATES SHE DOESN' KNOW WHERE SHE IS AT. THIS RN REORINTATES pt. THIS RN AND GM/SVP GLOBAL PUBLISHER BUSINESS REPOSITION pt. pt DENIES ANY OTHER NEEDS AND PAIN AT THIS TIME. FLUIDS OFFERED. pt TOOK A DRINK OF JUICE AND WENT BACK TO BED. CALL LIGHT WITHIN REACH.
--- NOTE | 2024-06-02 04:14 | NUR ---
pt RESTING IN THE BED WITH EYES CLOSED. RR EVEN AND UNLABORED. CALL LIGHT WITHIN REACH.
--- NOTE | 2024-06-02 06:59 | NUR ---
pt RESTING IN THE BED. JUICE PROVIDED. GRISSOM EMPTIED FOR 300 mL. pt DENIES ANY OTHER NEEDS AT THIS TIME. CALL LIGHT WITHIN REACH.
--- NOTE | 2024-06-02 07:20 | NUR ---
REPORT RECEIVED FROM MARGARITA COOLEY. PT IN BED WITH HOB ELEVATED, GREETS THIS RN. NO NEEDS AT THIS TIME, CALL LIGHT IN REACH.
--- NOTE | 2024-06-02 08:06 | NUR ---
MEDICATIONS ADMINISTERED, SEE MAR. PT REPORTS L UPPER/MID BACK IS AN 8/10, PRN PAIN MEDICATION ADMINISTERED. WARM BLANKETS APPLIED, TEA PROVIDED. PT HAS NO OTHER REQUESTS AT THIS TIME, CALL LIGHT IN REACH, BED IN LOWEST POSITION.
--- NOTE | 2024-06-02 09:26 | NUR ---
RN IN ROOM TO ASSIST MANUFACTURING TEAM LEADER IN BED LINEN CHANGE. PT HAD SPILLED HER TEA ON HERSELF IN BED, SKIN ASSESSMENT COMPLETED DURING CHANGE, NO REDNESS OR S/S OF BURN FROM TEA NOTED. GRISSOM CARE COMPLETED AND PT REPOSISTIONED. MUSCLE CRAMPING EVIDENT WITH REPOSISTIONING - PRN FLEXARIL ADMINISTERED. PT ABLE TO SWALLOW TABLET WITHOUT DIFFICULTY. BED ALARM ON, CALL LIGHT IN REACH.
--- NOTE | 2024-06-02 10:24 | NUR ---
PT RESTING IN BED WITH HOB ELEVATED. SHE APPEARS COMFORTABLE AND IS REPORTING NO PAIN AT THIS TIME. SHE IS REQUESTING LOTION FOR HER ARMS, SHE STATES "I THINK I WAS BURNED ALL OVER." LOTION PROVIDED AND PT IS ASSISTED TO APPLY. NO OTHER NEEDS AT THIS TIME, GRISSOM CATH TO SIDE OF BED FLOWING FREELY, BED IN LOWEST POSITION, CALL LIGHT IN REACH.
--- NOTE | 2024-06-02 10:50 | NUR ---
Patient spilled tea. Bed linens and patient's gown were changed. Catheter and mee care were performed. Pillow placed under knees and ankles floated. Bed alarm reset.
--- NOTE | 2024-06-02 11:45 | NUR ---
PT IS REQUESTING CHICKEN BROTH - PROVIDED. SHE IS AWAKE AND ALERT IN HER RECLINER, DAUGHTER IS RESTING ON THE COUCH AT THIS TIME. CALL LIGHT IN REACH.
--- NOTE | 2024-06-02 12:20 | NUR ---
Short conversation with Silvia. She is attempting to speak on the phone and the room phone is resting on her chest. I adjusted it to her ear for a better conversation. She states she is very tired.
--- NOTE | 2024-06-02 13:24 | NUR ---
ASSITED PT IN REPOSITIONING FOR COMFORT. PT R LEG IS COOL FROM THE KNEE DOWN, UNABLE TO LOCATE PEDAL PULSE. ATTEMPTED TO USE DOPPLER X10 MINUTES, UNABLE TO LOCATE PEDAL PULSE. PT IS GRABBING HER R LEG, GRIMACING, AND IS MUTTERING. ASKED PT IF SHE IS HAVING PAIN IN HER LEG, SHE REPORTS IT IS A 9/10 BUT CONTINUES SPEAKING AND NO LONGER MAKES SENSE FOLLOWING THE ANSWER OF THIS RNs QUESTION. PRN PAIN MEDICATION ADMINISTERED. ALLEVYN PLACED TO BILAT HEELS TO PROTECT FROM PRESSURE. PTs NEURO STATE UNCLEAR AT THIS TIME. SHE BEGINS TO ANSWER QUESTIONS BUT AFTER 2-3 WORDS STARTS TO WANDER WITH HER THOUGHTS. CHARGE NURSE MADE AWARE OF PTs LEG. PT LEGS REPOSITIONED ON TWO PILLOWS WITH HEELS FLOATING. CALL LIGHT IN REACH.
--- NOTE | 2024-06-02 14:09 | NUR ---
PRN PAIN MEDICATION ADMINISTERED AT THIS TIME. PT UNABLE TO ANSWER TO PAIN SCALE BUT OCCASIONAL CRY IN BED, LEGS DRAWN UP AND RESTLESS MOVEMENT. R LEG REMAINS COOL TO TOUCH WITH CALF TENDERNESS NOW NOTED. GRISSOM CATH DRAINING FREELY TO R OF BED. CALL LIGHT IN REACH. NO OTHER NEEDS AT THIS TIME.
--- NOTE | 2024-06-02 14:09 | NUR ---
VISITED DURING SPIRITUAL CARE ROUNDS. PT APPEARED TO BE SLEEPING COMFORTABLY. DID NOT DISTURB. PROVIDED PRAYER.
--- NOTE | 2024-06-02 14:20 | NUR ---
MD NOTIFIED OF PTs STATUS CHANGES, NO NEW ORDERS AT THIS TIME.
--- NOTE | 2024-06-02 15:29 | NUR ---
THIS RN ROUNDING ON PT - PT RESTING IN BED, EYES CLOSED, RR EVEN AND UNLABORED. CALL LIGHT IN REACH.
--- NOTE | 2024-06-02 15:44 | NUR ---
PILLOW UNDER R HIP AT THIS TIME, PT WITH KNEES BENT, PILLOW UNDER KNEES AND FEET PLANTED ON PILLOW UNDERNEATH. PT IS STILL ABLE TO MOVE HERSELF AT THIS TIME. GRISSOM CATH DRAINING FREELY. NO PAIN REPORTED. CALL LIGHT IN REACH.
--- NOTE | 2024-06-02 16:33 | NUR ---
PT RESTING WITH EYES CLOSED, RR EVEN AND UNLABORED, APPEARS COMFORTABLE AT THIS TIME. CALL LIGHT IN REACH.
--- NOTE | 2024-06-02 17:00 | NUR ---
PT NEPHEW PRESENT TO VISIT WITH PT. NEPHEW UPDATED ON PT PLAN OF CARE AT THIS TIME, VERBALIZES UNDERSTANDING. QUESTIONS ANSWERED. PT REPOSITIONED TO R SIDE, PILLOWS PLACED UNDER L SIDE WITH ASSISTANCE OF SINA LÓPEZ. GRISSOM CATH IS DRAINING FREELY, PT REQUESTS TO SIT UP HIGHER IN THE BED, HOB FURTHER ELEVATED AT THIS TIME. CALL LIGHT IN REACH. NEPHEW REMAINS AT BEDSIDE.
--- NOTE | 2024-06-02 18:04 | NUR ---
PT RESTING WITH EYES CLOSED, RR EVEN AND UNLABORED. PT RESPONDS TO LIGHT TOUCH AND VOICE. THIS RN ASKED PT IF SHE WAS HAVING ANY PAIN, PT STATES "NO". PT DOES NOT ANSWER WHEN ASKED IF SHE NEEDS ANYTHING AT THIS TIME. APPEARS COMFORTABLE, NO FROWN OR GRIMACE NOTED. CALL LIGHT IN REACH.
--- NOTE | 2024-06-02 18:28 | NUR ---
PT HAS VISITOR PRESENT IN ROOM AT THIS TIME.
--- NOTE | 2024-06-02 19:28 | NUR ---
Pt report received from MARGARITA Thurman. Pt is resting supine, in bed, HOB elevated to a position of comfort. Pt awakens to voice, denies pain, appears to be extremely drowsy. 2RN Skin assessment performed with MARGARITA Long at this time. White board updated. Side rails up x4, call light in reach.
--- NOTE | 2024-06-02 21:20 | NUR ---
In with pt for lidocaine patch removal and assessment. Pt respirations are slow but even and non-labored (about 12 breaths per minute). Right leg is cool to the touch with 1+ edema. Pt is extremely drowsy, and responds to voice, but does not speak clearly or loudly, is mumbling. Television on. Pt alone in room at this time. Side rails up x4, call ligth in reach. Oral care done at this time. Junior care done
--- NOTE | 2024-06-03 00:29 | NUR ---
In for hourly rounding. Pt is resting supine, floated on her left side, pillow between knees, eyes closed, breathing is regular, even, and non-labored at about 14bpm. Television on to country music. Side rails up x4. No one in with pt at this time.
--- NOTE | 2024-06-03 01:11 | NUR ---
ROUNDED ON PT. RESP 5; NO RESPONSE TO TOUCH. CALLED NUMBERS LISTED ON THE BOARD, NO ANSWER TO CELIA PEREIRA NUMBER; LEXY NUMBER NO ANSWER.
--- NOTE | 2024-06-03 02:08 | NUR ---
Pt respirations at 4 breaths per minute. Pulse 65. Pt is resting with eyes closed. television on
--- NOTE | 2024-06-03 02:19 | NUR ---
In with pt for rounding. Pt respirations 4 breaths per minute.
--- NOTE | 2024-06-03 02:30 | NUR ---
CARE ASSUMED OF PT. REPORT RECEIVED FROM FAN AVILA. IN TO CHECK ON PT, RR 4, PT HAS NO SIGNS OF PAIN/ANXIETY.
--- NOTE | 2024-06-03 05:26 | NUR ---
PT CONTINUES TO LOOK RESTFUL, RESP EVEN AND UNLABORED. RR 3.
--- NOTE | 2024-06-03 05:53 | NUR ---
PT REPOSITIONED, DOES OPEN EYES BRIEFLY BUT THEN CLOSES THEM AND LOOKS RELAXED AND CALM, RESP REMAIN EVEN AND UNALBORED RR 3-4.
--- NOTE | 2024-06-03 06:52 | NUR ---
CELIA PEREIRA RETURNED CALL. UPDATES GIVEN.
--- NOTE | 2024-06-03 08:07 | NUR ---
RECIEVED BEDSIDE REPORT FROM MARGARITA GURROLA. PT IS BREATHING SHALLOW AT 3-4 BREATHS PER MINUTE. DOES NOT APPEAR TO BE PAINFUL.
--- NOTE | 2024-06-03 08:42 | NUR ---
PT IS BREATHING 4-5 BPM, WITH SOME FACIAL GRIMICING. ADMINISTERED 10MG MSIR SUBLINGUAL. PT HAS FAMILY, SOY, AT BEDSIDE. EXPLAINED TO SOY WHAT WAS HAPPENING, WHY I WAS MEDICATING, AND NEXT STEPS. ENCOURAGED SOY TO SIT AT BEDSIDE, TALK TO PT, HOLD HER HAND. ADVISED TO CALL RN OR COME TO RN STATION WITH ANY CHANGES OR CONCERNS. PT IS MORE RELAXED, NO SIGNS OF PAIN AFTER MEDS.
[2024-06-03] MEDS ORDERED: SCOPOLAMINE 1 MG/3 DAYS PATCH 1 EACH TDSY TD SCH (09:00)
--- NOTE | 2024-06-03 09:40 | NUR ---
PT IS COMFORTABLE. TWO MORE SISTERS, PAULINA AND CARIDAD, ARRIVED AT BEDSIDE. DISCUSSED PROGNOSIS WITH THEM AND CARE PLAN. THEY ARE IN AGREEMENT, DAMPENER ORDERED COMFORT CART FOR FAMILY.
--- NOTE | 2024-06-03 10:19 | NUR ---
PT ON COMFORT CARE. MULTIPLE FAMILY MEMBERS IN ROOM, UNABLE TO GET TO COMPUTER TO SCAN PT AND MEDS.
--- NOTE | 2024-06-03 10:39 | NUR ---
Patient is down to 3-4 breaths per minute. Family informed and in the room.
--- NOTE | 2024-06-03 11:12 | NUR ---
In to check on pt. Multiple family members in the room. No needs.
--- NOTE | 2024-06-03 11:39 | NUR ---
VISITED DURING SPIRITUAL CARE ROUNDS. PT SURROUNDED BY FAMILY WHO DENIED IMMEDIATE NEEDS. INDUSTRIAL TRAINING SPECIALIST PROVIDED SUPPORTIVE PRESENCE, HOSPITALITY, PRAYER. FAMILY EXPRESSED GRATITUDE.
--- NOTE | 2024-06-03 13:07 | NUR ---
PT FAMILY MEMBER ASKED FOR DOSE OF MSIR. GAVE 10MG. REPOSITIONED PT. PT IS STILL BREATHING AT 3-4/BPM. PT APPEARS COMFORTABLE WITH NO SIGNS OF DISTRESS.
--- NOTE | 2024-06-03 15:07 | NUR ---
Patient shows no signs of pain. Breathing remains shallow and at 3-4 resps. per minute. Family in room.
--- NOTE | 2024-06-03 15:33 | NUR ---
Temitope from [facility] at the [facility] called to check on Silvia. UPdate given and they are multiple family members present.
--- NOTE | 2024-06-03 17:55 | NUR ---
REFILLED FAMILY FOOD CART COFFEE AND WATER. PT IS BREATHING 2-4/BPM. NO DISTRESS OR DISCOMFORT NOTED.
--- NOTE | 2024-06-03 19:16 | NUR ---
Patient is resting comfortably with no signs of pain. Junior was emptied. Family in room.
--- NOTE | 2024-06-03 19:25 | NUR ---
SHIFT REPORT RECEIVED FROM KENYATTA RN, PT RESTING WITH EYES CLOSED, RESP EVEN, QUIET, FAMILY MEMBER AT BEDSIDE, PT WITHOUT APPEARANCE OF SOB OR PAIN AT THIS TIME.
--- NOTE | 2024-06-03 21:00 | NUR ---
PT RESTING WITH EYES CLOSED, RESP RATE 24/MIN, HR 60/MIN, SKIN WARM, PT MEDICATED WITH MORPHINE 10MG SL FOR COMFORT CONTROL AND SOME SOB, FACE GENTLY WASHED AND PT TURNED TOWARD BACK, HOB ELEVATED APPROX 22 DEGREES. MOISTURIZER TO LIPS, PT WITH TRANSIENT POSSIBLE HIPCUPS, SUPPORT GIVEN TO FAMILY
--- NOTE | 2024-06-03 22:13 | NUR ---
PT RESTING QUIETLY, RESPIRATIONS EVEN, UNLABORED RATE OF 16.
--- NOTE | 2024-06-03 23:03 | NUR ---
pt REPOSITIONED IN BED PER REQUEST OF PRIMARY RN ELFEGO, WITH HELP FROM MARGARITA SANCHEZ, BILATERAL HIPS FLOATED. NO ADDITIONAL NEEDS OR CONCERNS, pt DID NOT RESPOND WITH TURNING, EYES REMAINED CLOSED, RESPIRATIONS REMAINS SHALLOW.
--- NOTE | 2024-06-03 23:14 | NUR ---
LIDOCAINE PATCH REMOVED FROM BOTH LEFT AND RIGHT THIGH PER PRIMARY RN REQUEST.
--- NOTE | 2024-06-04 00:18 | NUR ---
PT MAKING HICCUP TYPE SOUNDS WITH BREATHING, PT MEDICATED WITH 10MG SL MORPHINE FOR COMFORT CARE, ORAL CARE GIVEN, OINTMENT TO LIPS, CATH CARE DONE, WARM BLANKET TO RIGHT FOOT WHICH IS VERY COOL AND PURPLE COLORED, RESP RATE 20/MIN, GRISSOM OUT MINIMAL YELLOW URINE.
--- NOTE | 2024-06-04 01:50 | NUR ---
PT RESTING WITH EYES CLOSED, RESP RATE 16/MIN SHALLOW.
--- NOTE | 2024-06-04 02:50 | NUR ---
ROUNDED ON pt, pt REMAINS RESTING IN BED WITH EYES CLOSED, RESPIRATIONS SHALLOW. FAMILY FRIEND IN ROOM AND SITTING QUIETLY IN RECLINER NEXT TO pt.
--- NOTE | 2024-06-04 03:55 | NUR ---
PT MEDICATED WITH MORPHINE 10MG SL AND ATROPINE UNDER TONQUE FOR MOIST RESP, RESP RATE 16/MIN.
--- NOTE | 2024-06-04 04:00 | NUR ---
PT RESTING WITH EYES CLOSED, UNRESPONSIVE, AUDIBLE MOIST RESP, RESP RATE 16/MIN, EVEN AND REG, RIGHT SIDE PILLOW REMOVED, HOB REMAINS 22 DEGREES, FRIEND ASLEEP IN RECLINER, SCANT U/O CONTINUES, ORAL CARE GIVEN AND OINTMENT TO LIPS.
--- NOTE | 2024-06-04 04:20 | NUR ---
PT RESTING WITH EYES CLOSED, RESP EVEN AND REG, QUIETER, NOT MOIST AT THIS TIME. REST RATE CONTS APPROX 16/MIN.
--- NOTE | 2024-06-04 06:24 | NUR ---
PT RESTING WITH EYES CLOSDED, RESP EVEN AND REG, 16/MIN, RESP MOIST, PT MEDICATED WITH MORPHINE 10MG SL, ATROPINE 2 DROPS GIVEN FOR MOIST RESP, PT REPOSITIONED TO FLOATING POSITION, ORAL CARE GIVEN, ONINTMENT TO LIPS, GRISSOM OUT 50ML YELLOW URINE. FRIEND ASLEEP ON COUCH.
[2024-06-04] MEDS ORDERED: LORazepam 2 MG/ML ML SL PRN (08:15)
--- NOTE | 2024-06-04 08:59 | NUR ---
PT COMFORT CARE, FRIEND AT BEDSIDE. PRN MORPHINE GIVEN, DISCUSSED WITH MD AND PO ATIVAN ORDERED THIS MORNING PATIENT HAS NO IV ACCESS. PT RESP CURRENTLY 8-10 PER MINUTE, TURNED PATIENT FOR COMFORT. PT DOES SOUND LIKE HER SECRETIONS ARE INCREASING, WILL REVIEW WITH MD ABOUT POTENTIAL TO INCREASE ATROPINE DROPS,
--- NOTE | 2024-06-04 10:09 | NUR ---
VERIFIED ACTIVE MED ORDERS WITH MD, DUE TO PATIENT COMFORT STATUS, ALL ORAL/IV MEDS DISCONTINUED AT THIS TIME. LIDOCAINE PATCHES DISCONTINUED. INCREASED ATROPINE TO Q2HRS PRN.
[2024-06-04] MEDS ORDERED: ATROPINE SULFATE 1% OPTH DROPS SL PRN (10:15)
--- NOTE | 2024-06-04 12:59 | NUR ---
PT IS RESTING, RESP AT 12BPM. SHE IS COMFORTABLE AT THIS TIME. HAS SOME FAMILY PRESENT AT BEDSIDE. PRN ATIVAN/MORPHINE GIVEN ALONG WITH ATROPINE SL PT IS HAVING INCREASE SECRETIONS/GURGLING. PT IS HAVING SOME AGONAL BREATHING. CELIA HAS CALLED FOR UPDATE, HAVE ATTEMPTED TO REACH AND WILL TRY THROUGH FAMILY PHONE TO GET AHOLD OF HIM FOR UPDATE.
--- NOTE | 2024-06-04 14:13 | NUR ---
PT RESTING, FAMILY REMAIN AT BEDSIDE. PRN MORPHINE/ATIVAN GIVEN - SEE MAR. RESPIRATIONS REMAIN AT 12BPM, CONTINUES TO HAVE SOME AGONAL BREATHING. SECRETIONS SEEMS BETTER AT THIS TIME. MORE FAMILY PRESENT AT BEDSIDE. ATTEMPTED TO CONTACT BOOTS THROUGH FAMILY AGAIN BUT UNABLE TO REACH TO GIVE UPDATE.
--- NOTE | 2024-06-04 15:38 | NUR ---
RECIEVED HAND OFF REPORT FROM MARGARITA BERMEO
--- NOTE | 2024-06-04 15:58 | NUR ---
THIS RN AND MARGARITA VAUGHN IN ROOM TO REPOSITION PT, IN FLOATING POSITION. ADMINSITERED MEDICATIONS (PER EMAR). FAMILY AT BEDSIDE.
--- NOTE | 2024-06-04 17:20 | NUR ---
IN ROOM TO ADMINISTER MEDICATIONS. PT IS RESTING COMFORTABLY IN BED. FAMILY AT BEDSIDE. FAMILY WILL BE PERFORMING CEROMONY THIS EVENING.
--- NOTE | 2024-06-04 19:10 | NUR ---
SHIFT REPORT RECEIVED FROM KARIN AVILA, FAMILY MEMBERS AT BEDSIDE, DISCUSSED PLAN OF CARE WITH 2 FAMILY MEMBERS AND THEY CONCUR WITH PLAN.
--- NOTE | 2024-06-04 20:15 | NUR ---
RN TO ROOM, FAMILY AT BEDSIDE, AUDIBLE MOIST RESPIRATIONS NOTED, PT WITH EYES CLOSED AND NON RESPONSIVE TO TACTILE STIMULUS, RESP RATE 10/MIN, HR IRREGULAR AT 60/MIN, ASSESSMENT COMPLETED, PT MEDICATED WITH MORPHINE 10MG AND ATIVAN 1MG PER ORDER, GRISSOM PATENT, DRAINING SCANT URINE, PT REPOSITIONED UP IN BED WITH SLIGHT RIGHT TILT, HOB ELEVATED APPROX 25 DEGREES, SIDE RAILS UP X 4, SUPPORT GIVEN TO FAMILY, QUESTIONS DISCUSED, FAMILY DENIES NEEDS AT THIS TIME.
--- NOTE | 2024-06-04 20:35 | NUR ---
RN CALLED TO ROOM BY ROSE AVILA, FAMILY NOTIFED ROSE AVILA THAT PT APPEARED NOT TO BE BREATHING, TO BEDSIDE, APICAL HR NOT HEAR OVER APPROX 1 MINUTE TIME, NO RESP MOVEMENT NOTED FOR OVER 2 MINUTES, SUPPORT TO FAMILY, TC TO DR MENDENHALL, UPDATED ON NO SIGNS OF LIFE IN PT, MD UP TO UNIT TO PRONOUCE OF PT.
--- NOTE | 2024-06-04 20:50 | NUR ---
HOUSE SUPERVISIOR NOTIFIED OF PT'S .
--- NOTE | 2024-06-04 21:30 | NUR ---
INSTRUCTED BY BLUEPRINT TRACER TO PLACE ICE PACK OVER pt EYES UNTIL FINAL DONOR AVAILABILITY IS CONFIRMED, NEPHEW BOOTS EDUCATED ON INTERVENTION.
--- NOTE | 2024-06-04 22:18 | NUR ---
CALLED BY UNDERCOLLAR BASTER LAURO WHEN PT PASSED. ARRIVED ONSITE WITH FAMILY IN ROOM. ALL APPEARED TO BE ACCEPTING SITUATION AND EXPRESSING SITUATIONALLY APPROPRIATE EMOTION. CLOTH DYE RANGE OPERATOR PROVIDED SUPPORTIVE PRESENCE, PRAYER, FACILITATED CONTACT WITH HOME. WALKED FAMILY OUT. FAMILY TOOK PT BELONGINGS BAG AND RIVERA. INDICATED [facility].
--- NOTE | 2024-06-04 22:50 | NUR ---
[facility]ERSON[facility] HERE WITH PASTORAL CARE, RN ASSIST WITH TRANSFER OF PT TO STRETCHER AND DISCHARGED IN CARE OF [facility]. PT LOCKED BOX MEDS (ATIVAN, TRAMADOL, ATROPINE), TO MED ROOM AND PLACED IN PT'S BIN. NO OTHER BELONGINGS NOTED IN PT'S ROOM.
--- NOTE | 2024-06-04 22:53 | NUR ---
CALLED [facility] [id number]. ARRIVED 2230. [facility] DEPARTED FACILITY 2253.
== END 2024-06-04 20:35 | DRG 432 ==
LOC: ED 20:45 → MS 20:47
PROVIDERS: Family Medicine; ADMIT Student in an Organized Health Care Education/Training Program; ATTEND Student in an Organized Health Care Education/Training Program
PROC: 0T9B70Z Drainage of Bladder with Drainage Device, Via Natural or Artificial Opening (ICD-10-PCS; 2024-05-29)
PROC: 3E03329 Introduction of Other Anti-infective into Peripheral Vein, Percutaneous Approach (ICD-10-PCS; 2024-05-29)
PROC: 30233J1 Transfusion of Nonautologous Serum Albumin into Peripheral Vein, Percutaneous Approach (ICD-10-PCS; 2024-05-30)
PROC: 0W9G3ZZ Drainage of Peritoneal Cavity, Percutaneous Approach (ICD-10-PCS; principal; 2024-05-31)
DX: K74.60 Unspecified cirrhosis of liver (principal); N18.6 End stage renal disease; I12.0 Hypertensive chronic kidney disease with stage 5 chronic kidney disease or end stage renal disease; N17.9 Acute kidney failure, unspecified; R18.8 Other ascites; M62.82 Rhabdomyolysis; Z51.5 Encounter for palliative care; Z66 Do not resuscitate; K76.82 Hepatic encephalopathy; E11.22 Type 2 diabetes mellitus with diabetic chronic kidney disease; D50.9 Iron deficiency anemia, unspecified; D63.1 Anemia in chronic kidney disease; M19.90 Unspecified osteoarthritis, unspecified site; Z87.81 Personal history of (healed) traumatic fracture; Z89.429 Acquired absence of other toe(s), unspecified side; Z79.899 Other long term (current) drug therapy; Z88.5 Allergy status to narcotic agent; S80.01XA Contusion of right knee, initial encounter; W18.30XA Fall on same level, unspecified, initial encounter; Z87.440 Personal history of urinary (tract) infections
CPT/HCPCS: 36415; 73560; 73590; 76705; 80053; 81001; 82140; 82553; 83735; 85025; 96374; 96375; 97162; 97165; 97535; 99285-25; A9270; G0480; J1171; J1644; J1940; J2060; J2270; J2470; J7030; J7040; J7070; J7121; P9047